=== PATIENT | female | born 1945 | race Caucasian/White ===

== ENCOUNTER 2016-11-01 14:00 | Inpatient (IN) | payer OTHER ==
--- NOTE | 2016-11-01 14:50 | PDOC ---
History of Present Illness - History of Present Illness Initial Comments: 11/01/16 14:54 The patient is a 71 year old female, with a significant past medical history of pulmonary hypertension, Breast CA (Left), large abdominal hernia (RLQ), and chronic low back pain, who presents to the emergency department via ems with increased pain to her lower back s/p mechanical fall about an hour ago. The patient states she stood up with her walker and the walker slipped from under her, causing her to land on her hands and knees. She denies hitting her head or any loss of consciousness. She states she was walking out of her house on her way to the hospital for a CT scan, as referred by Dr. Kay, when she fell. She states her low back pain has increased since her fall today. She reports receiving physical therapy, epidurals, and acupuncture for a pinched nerve in her right lower back over the past few months with little relief of pain. She reports using a wheelchair most days, but states she can use the walker with assistance to get into her wheelchair.The patient states she can not undergo surgery for her hernia because she can not have anesthesia. She denies chest pain, shortness of breath, headache and dizziness. She denies fever, chills, nausea, vomit, diarrhea and constipation. She denies dysuria, frequency, urgency and hematuria. PCP: Dr. Kay <Ofelia Truong - Last Filed: 11/01/16 14:54> - History of Present Illness Initial Comments: 11/01/16 15:13 Physical exam: Alert, moderate distress due to back pain, no head or neck pain or injury. Head atraumatic. PERRLA, fundi benign, ENT clear Neck without tenderness or deformity, full range of motion without pain Chest clear to P&A. No chest wall or rib cage deformity or tenderness There is a large right breast mass that has been diagnosed as breast cancer 2 years ago. There is been no surgery, due to her surgical risk. She is on oral chemotherapy. CV regular without murmur or gallop Abdomen large right sided ventral and/or inguinal hernia is palpable. Bowel sounds are present within the hernia. There is no inflammation and minimal tenderness. The mass is unchanged, according to the patient. LS-spine without visible or palpable evidence of inflammation. Limited cooperation with neurological exam. Refuses to move the legs or resist movement. Examination of the knees shows no deformities, swelling, effusion, point tenderness, or ligament laxity. Upper extremities no sign of trauma as well. 11/01/16 17:18 <Rakesh Plascencia - Last Filed: 11/01/16 17:21> - General Chief Complaint: Back Pain Stated Complaint: FELL, BACK PAIN Time Seen by Provider: 11/01/16 14:32 Past History <Ofelia Truong - Last Filed: 11/01/16 14:54> - Past Medical History Cancer: Yes (LEFT BREAST) COPD: Yes (PULMONARY HYPERTENSION) Diabetes: Yes Other medical history: VENTRAL HERNIA - Psycho/Social/Smoking Cessation Hx Suicidal Ideation: No Smoking History: Former smoker Have you smoked in the past 12 months: No If you are a former smoker, when did you quit?: 43 YRS AGO Information on smoking cessation initiated: No Hx Alcohol Use: No Drug/Substance Use Hx: No Substance Use Type: None <Rakesh Plascencia - Last Filed: 11/01/16 17:21> - Past Medical History Allergies/Adverse Reactions: Allergies Allergy/AdvReac Type Severity Reaction Status Date / Time Iodinated Contrast Media - Allergy Unknown Verified 11/01/16 14:41 Oral and Opioids - Morphine Analogues Allergy Unknown Verified 11/01/16 14:41 Opioids-Meperidine and Allergy Unknown Verified 11/01/16 14:41 Related Home Medications: Ambulatory Orders Amitriptyline HCl [Elavil -] 10 mg PO HS 11/01/16 Arformoterol Tartrate [Brovana (Restricted To Pulmonology/Resp) -] 1 neb NEB BID 11/01/16 Ascorbic Acid [Vitamin C -] 500 mg PO DAILY 11/01/16 Calcium Carbonate/Vitamin D3 [Calcium 600 + Vitamin D Sftgl] 1,200 mg PO HS Cholecalciferol (Vitamin D3) [Vitamin D3] 2,000 unit PO HS 11/01/16 Exemestane [Aromasin] 25 mg PO HS 11/01/16 Exenatide [Byetta [Non-Formulary]] 5 mcg SQ DAILY 11/01/16 Fluticasone Prop 0.05% Nasal [Flonase -] 1 spray NS DAILY 11/01/16 Furosemide [Lasix] 20 mg PO DAILY 11/01/16 Loperamide HCl [Imodium -] 2 mg PO DAILY 11/01/16 Metformin HCl [Glucophage] 500 mg PO BID 11/01/16 Montelukast Na [Singulair -] 10 mg PO HS 11/01/16 Ramipril [Altace] 5 mg PO HS 11/01/16 Tadalafil [Adcirca] 20 mg PO DAILY 11/01/16 Treprostinil Sodium [Remodulin] 2.6 ml IJ ASDIR 11/01/16 Ubidecarenone/Vit E Acetate [Co Q-10 100 mg Softgel] 1 each PO DAILY 11/01/16 Review of Systems - Review of Systems Able to Perform ROS?: Yes Comments:: 11/01/16 14:54 CONSTITUTIONAL: Absent: fever, chills, diaphoresis, generalized weakness, malaise, loss of appetite HEENT: Absent: rhinorrhea, nasal congestion, throat pain, throat swelling, difficulty swallowing, mouth swelling, ear pain, eye pain, visual Changes CARDIOVASCULAR: Absent: chest pain, syncope, palpitations, irregular heart rate, lightheadedness , peripheral edema RESPIRATORY: Absent: cough, shortness of breath, dyspnea with exertion, orthopnea, wheezing, stridor, hemoptysis GASTROINTESTINAL: Absent: abdominal pain, abdominal distension, nausea, vomiting, diarrhea, constipation, melena, hematochezia GENITOURINARY: Absent: dysuria, frequency, urgency, hesitancy, hematuria, flank pain, genital pain MUSCULOSKELETAL: (+) Low back pain. Absent: myalgia, arthralgia, joint swelling SKIN: Absent: rash, itching, pallor HEMATOLOGIC/IMMUNOLOGIC: Absent: easy bleeding, easy bruising, lymphadenopathy, frequent infections ENDOCRINE: Absent: unexplained weight gain, unexplained weight loss, heat intolerance, cold intolerance NEUROLOGIC: Absent: headache, focal weakness or paresthesia, dizziness, unsteady gait, seizure, mental status changes, bladder or bowel incontinence PSYCHIATRIC: Absent: anxiety, depression, suicidal or homicidal ideation, hallucinations <Ofelia Truong - Last Filed: 11/01/16 14:54> *Physical Exam - Vital Signs Last Vital Signs Temp Pulse Resp BP Pulse Ox 98.3 F 65 28 H 106/77 100 11/01/16 14:16 11/01/16 14:16 11/01/16 14:16 11/01/16 14:16 11/01/16 14:16 - Physical Exam Comments: 11/01/16 14:55 GENERAL: Well developed, well nourished. Awake and alert. No acute distress. HEENT: Normocephalic, atraumatic. PERRLA, EOMI. No conjunctival pallor. Sclera are non- icteric. Moist mucous membranes. Oropharynx is clear. NECK: Supple. Full ROM. No JVD. Carotid pulses 2+ and symmetric, without bruits. No thyromegaly. No lymphadenopathy. CARDIOVASCULAR: Regular rate and rhythm. No murmurs, rubs, or gallops. Distal pulses are 2+ and symmetric. PULMONARY: No evidence of respiratory distress. Lungs clear to auscultation bilaterally. No wheezing, rales or rhonchi. ABDOMINAL: Soft. Non-tender. Non-distended. No rebound or guarding. No organomegaly. Normoactive bowel sounds. MUSCULOSKELETAL No bony deformities or tenderness. No CVA tenderness. EXTREMITIES: No cyanosis. No clubbing. No edema. No calf tenderness. SKIN: Warm and dry. Normal capillary refill. No rashes. No jaundice. NEUROLOGICAL: Alert, awake, appropriate. Cranial nerves 2-12 intact. Normal speech. PSYCHIATRIC: Cooperative. Good eye contact. Appropriate mood and affect. <Ofelia Truong - Last Filed: 11/01/16 14:54> - Vital Signs Last Vital Signs Temp Pulse Resp BP Pulse Ox 98.3 F 65 28 H 106/77 100 11/01/16 14:16 11/01/16 14:16 11/01/16 14:16 11/01/16 14:16 11/01/16 14:16 <Rakesh Plascencia - Last Filed: 11/01/16 17:21> ED Treatment Course - LABORATORY CBC & Chemistry Diagram: 11/01/16 17:00 11/01/16 17:00 <Rakesh Plascencia - Last Filed: 11/01/16 17:21> Medical Decision Making - Medical Decision Making 11/01/16 15:11 The patient was on her way to the hospital today for scheduled CAT scan of her abdomen/pelvis and LS-spine. She has been having more severe lower back pain since her last CT. This has been unresponsive to analgesics, and injections. She has no radicular symptoms, the pain being confined to the low back, especially on the left. She is primarily wheelchair bound. There have been no bowel or bladder symptoms. She also has a large right ventral hernia, with no increased pain, nausea, vomiting, diarrhea, or constipation, but its size has been increasing. 11/01/16 17:19 CT scan of the spine reveals multiple compression fractures of the spine from T12-L5. These changes are new since the last scan of July,. An infiltrative process is likely, probably metastatic breast cancer. Dr. Kay, her primary physician, was consulted by phone. In addition, his hospitalist, Dr. Hall, was informed. He will admit the patient for further evaluation and treatment. She is hesitant to take any narcotic analgesics because of bad reactions in the past, though no definite ALLERGY was present. She appears fairly comfortable, as long as she avoids movement. <Rakesh Plascencia - Last Filed: 11/01/16 17:21> *DC/Admit/Observation/Transfer - Attestations Scribe Attestion: 11/01/16 14:56 Documentation prepared by Ofelia Truong, acting as center medical and lab director for Rakesh Trevino MD <Ofelia Truong - Last Filed: 11/01/16 14:54> - Discharge Dispostion Admit: Yes <Rakesh Plascencia - Last Filed: 11/01/16 17:21> Diagnosis at time of Disposition: Pathologic compression fracture of lumbar vertebra - Discharge Dispostion Condition at time of disposition: Fair
[2016-11-01 17:32] LABS: BASOPHIL 0.2 % (0-2.0); MCH 26.1 pg (25.7-33.7); MCHC 32.4 g/dl (32.0-36.0); MEAN CELL VOLUME 80.5 fl (80-96); MEAN PLT VOLUME 6.4 fl (7.5-11.1); NEUTROPHILS 84.4 % (42.8-82.8); PLATELET COUNT 217 K/MM3 (134-434); RDW 15.5 % (11.6-15.6); WHITE BLOOD COUNT 12.2 K/mm3 (4.0-10.0)
[2016-11-01 17:39] LABS: ALBUMIN 3.4 g/dl (3.5-5.0); ALK PHOS 61 U/L (32-92); ANION GAP 10 (8-16); BILIRUBIN,TOTAL 0.5 mg/dl (0.2-1.0); CALCIUM 8.9 mg/dl (8.4-10.2); CO2 25 mmol/L (22-28); CREATININE 0.6 mg/dl (0.6-1.3); GLUCOSE,RANDOM 115 mg/dl (74-106); SGOT/AST 11 U/L (10-42); TOT PROT 6.2 g/dl (6.4-8.3)
[2016-11-01 17:50] LABS: SGPT/ALT < 9 U/L (10-40)
[2016-11-01 21:03] LABS: URINE APPEARANCE Clear; URINE BILIRUBIN Negative (NEGATIVE); URINE BLOOD Negative (NEGATIVE); URINE GLUCOSE (UA) Negative (NEGATIVE); URINE KETONE Negative (NEGATIVE); URINE LEUK ESTERASE Trace (NEGATIVE); URINE NITRITE Negative (NEGATIVE); URINE PROTEIN Negative (NEGATIVE); URINE UROBILINOGEN 0.2 E.U/dl (0.2-1.0)
[2016-11-01 21:04] LABS: URINE COLOR YELLOW
[2016-11-01] MEDS ORDERED: FUROSEMIDE 20 MG TABLET (FP) PO PRN (21:55)
[2016-11-01] MEDS ORDERED: ONDANSETRON 4 MG/2 ML VIAL IVPB PRN (21:56)
[2016-11-01] MEDS ORDERED: ACETAMINOPHEN 325 MG TABLET (FP) PO PRN (21:56)
[2016-11-01] MEDS ORDERED: PT OWN MED DRAWER 7, Y5N ONE (22:52)
[2016-11-01] MEDS ORDERED: REFRIGERATED ANITBIOTICS ONE (22:53)
[2016-11-01] MEDS: MONTELUKAST NA 10 MG TABLET PO SCH (22:56)
[2016-11-01] MEDS: CHOLECALCIFEROL (VITAMIN D3) 1,000 UNIT TABLET (FP) PO SCH (22:56)
[2016-11-01] MEDS: ARFORMOTEROL TARTRATE 15 MCG/2 ML VIAL NEB SCH (22:57)
[2016-11-01] MEDS: RAMIPRIL 5 MG CAPSULE (FP) PO SCH (22:57)
[2016-11-01] MEDS: DOCUSATE SODIUM 100 MG CAPSULE (FP) PO SCH (22:57)
[2016-11-01] MEDS: EXEMESTANE 25 MG TABLET PO SCH (22:57)
[2016-11-01] MEDS: TREPROSTINIL SODIUM IJ SCH (22:59)
[2016-11-02 00:14] VITALS: BMI 37.0
[2016-11-02] MEDS ORDERED: PT OWN MED DRAWER 7, Y5N ONE ×4 (08:01→21:26)
[2016-11-02 08:53] LABS: BASOPHIL 1.1 % (0-2.0); MCH 26.8 pg (25.7-33.7); MCHC 33.3 g/dl (32.0-36.0); MEAN CELL VOLUME 80.4 fl (80-96); MEAN PLT VOLUME 6.6 fl (7.5-11.1); NEUTROPHILS 78.3 % (42.8-82.8); PLATELET COUNT 220 K/MM3 (134-434); RDW 15.5 % (11.6-15.6); WHITE BLOOD COUNT 10.1 K/mm3 (4.0-10.0)
[2016-11-02 09:16] LABS: CALCIUM 8.6 mg/dl (8.4-10.2); CREATININE 0.6 mg/dl (0.6-1.3); MAGNESIUM 1.8 mg/dL (1.8-2.4); PHOSPHOROUS 3.6 mg/dl (2.5-4.6)
[2016-11-02] MEDS: ARFORMOTEROL TARTRATE 15 MCG/2 ML VIAL NEB SCH ×2 (09:33→21:34)
[2016-11-02] MEDS ORDERED: EXENATIDE 5 MCG SQ SCH (10:00)
[2016-11-02] MEDS ORDERED: PATIENT'S OWN MEDICATION (NON-FORMULARY) (Ubidecarenone/Vit E Acetate [Co Q-10 100 Mg Soft PO SCH (10:00)
[2016-11-02] MEDS ORDERED: TADALAFIL 20 MG PO SCH (10:00)
[2016-11-02] MEDS ORDERED: LOPERAMIDE HCL 2 MG CAPSULE PO SCH (10:00)
--- NOTE | 2016-11-02 10:14 | HP ---
Admitting History and Physical - Primary Care Physician PCP: Angel Kay - Admission Chief Complaint: I have a lot of pain History of Present Illness: Mrs Blandon is a very pleasant 71 year old female who comes in with intractable back pain. She has a history of back pain, but in the past 3 weeks it has become so severe she has been unable to walk. She is followed by pain management and has undergone injections, physical therapy, and accupuncture without relief. She is followed by Dr Kay and recommended a repeat CT scan secondary to worsening pain. While she was getting ready for the CT scan, she was using her wheelchair as a walker and it slipped. She fell and hit her knees. She did not have head trauma. She did not pass out. However she had acute worsening of her back pain and inability to get up and ambulate. She denies fevers, chills, lightheadedness, dizziness, chest pain, worsening shortness of breath, nausea, vomiting, abdominal pain, diarrhea, constipation, pain or difficulty urinating, or swelling. She has a ventral hernia that has been increasing in size but it is not painful. She is currently having pain with movement but is not having pain when still. History Source: Patient Limitations to Obtaining History: No Limitations - Past Medical History Cardiovascular: Yes: CHF (right sided) Pulmonary: Yes: Other (pulmonary hypertension) Heme/Onc: Yes: Cancer (breast, uterine) Endocrine: Yes: Diabetes Mellitus - Past Surgical History Past Surgical History: Yes: Appendectomy, Hysterectomy - Advance Directives Advance Directives: Yes: Health Care Proxy - Smoking History Smoking history: Former smoker Have you smoked in the past 12 months: No If you are a former smoker, when did you quit?: 43 YRS AGO - Alcohol/Substance Use Hx Alcohol Use: No History of Substance Use: reports: None - Social History Usual Living Arrangement: Yes: With Child ADL: Family Assistance History of Recent Travel: No Home Medications - Allergies Allergies/Adverse Reactions: Allergies Allergy/AdvReac Type Severity Reaction Status Date / Time Iodinated Contrast Media - Allergy Unknown Verified 11/01/16 14:41 Oral and Opioids - Morphine Analogues Allergy Unknown Verified 11/01/16 14:41 Opioids-Meperidine and Allergy Unknown Verified 11/01/16 14:41 Related - Home Medications Home Medications: Ambulatory Orders Arformoterol Tartrate [Brovana (Restricted To Pulmonology/Resp) -] 1 neb NEB BID 11/01/16 Ascorbic Acid [Vitamin C -] 500 mg PO DAILY 11/01/16 Cholecalciferol (Vitamin D3) [Vitamin D3] 2,000 unit PO HS 11/01/16 Exemestane [Aromasin] 25 mg PO HS 11/01/16 Exenatide [Byetta [Non-Formulary]] 5 mcg SQ DAILY 11/01/16 Fluticasone Prop 0.05% Nasal [Flonase -] 1 spray NS DAILY 11/01/16 Furosemide [Lasix] 20 mg PO DAILY PRN 11/01/16 Loperamide HCl [Imodium -] 2 mg PO DAILY 11/01/16 Metformin HCl [Glucophage] 500 mg PO BID 11/01/16 Montelukast Na [Singulair -] 10 mg PO HS 11/01/16 Non-Formulary 0 mg PO ASDIR PRN 11/01/16 Ramipril [Altace] 5 mg PO HS 11/01/16 Tadalafil [Adcirca] 20 mg PO DAILY 11/01/16 Treprostinil Sodium [Remodulin] 2.6 ml IJ ASDIR 11/01/16 Ubidecarenone/Vit E Acetate [Co Q-10 100 mg Softgel] 1 each PO DAILY 11/01/16 Family Disease History - Family Disease History Family Disease History: CA: Father, Mother Review of Systems Findings/Remarks: Full review of systems obtained, as per HPI and otherwise negative Physical Examination Vital Signs: Vital Signs Temperature 98.7 F 11/02/16 06:29 Pulse Rate 96 H 11/02/16 06:29 Respiratory Rate 18 11/02/16 06:29 Blood Pressure 106/55 11/02/16 06:29 O2 Sat by Pulse Oximetry (%) 94 L 11/02/16 08:52 Constitutional: Yes: No Distress, Calm, Obese Eyes: Yes: Conjunctiva Clear, EOM Intact HENT: Yes: Atraumatic, Normocephalic Cardiovascular: Yes: Regular Rate and Rhythm. No: Gallop, Murmur, Rub Respiratory: Yes: Regular, CTA Bilaterally. No: Rales, Rhonchi, Wheezes Gastrointestinal: Yes: Normal Bowel Sounds, Soft, Distention, Hernia. No: Tenderness Extremities: Yes: WNL Edema: No Labs: CBC, BMP 11/02/16 07:59 11/02/16 07:59 Imaging - Results Chest X-ray: Report Reviewed, Image Reviewed Cat Scan: Report Reviewed Problem List - Problems (1) Pathologic compression fracture of lumbar vertebra Assessment/Plan: -concerning for metastatic breast cancer -however also could be secondary to osteoporosis -will consult Dr Montelongo as pain is poorly controlled -continue medical marijuana and tramadol, however may benefit from opioids. will defer to pain management Code(s): M48.56XA - COLLAPSED VERTEBRA, NEC, LUMBAR REGION, INIT (2) Intractable back pain Assessment/Plan: -secondary to fall and compression fractures -PT consult -continue tramadol and medical marijuana -pain management consult -? need for opioids Code(s): M54.9 - DORSALGIA, UNSPECIFIED (3) Pulmonary hypertension Assessment/Plan: -continue home regimen -monitor, not a surgical candidate secondary to severity (has pump with remodulin) Code(s): I27.2 - OTHER SECONDARY PULMONARY HYPERTENSION (4) Breast cancer Assessment/Plan: -concerning for metastasis -consult oncology for evaluation -continue aromasin Code(s): C50.919 - MALIGNANT NEOPLASM OF UNSP SITE OF UNSPECIFIED FEMALE BREAST (5) Diabetes Assessment/Plan: -diabetic diet -continue metformin -continue byetta -monitor glucose on bmp Code(s): E11.9 - TYPE 2 DIABETES MELLITUS WITHOUT COMPLICATIONS
[2016-11-02] MEDS: DOCUSATE SODIUM 100 MG CAPSULE (FP) PO SCH ×2 (10:54→21:34)
[2016-11-02] MEDS: metFORMIN HCL 500 MG TABLET (FP) PO SCH ×2 (10:54→16:50)
[2016-11-02] MEDS: FLUTICASONE PROP 0.05% 16 GM NASAL SPRAY NS SCH (10:55)
[2016-11-02] MEDS: ENOXAPARIN NA (PORCINE) 40 MG/0.4 ML DISP.SYRIN SQ SCH (10:55)
[2016-11-02] MEDS: ASCORBIC ACID 500 MG TABLET (FP) PO SCH (10:56)
[2016-11-02] MEDS: POLYETHYLENE GLYCOL 3350 119 GM BTL PO SCH (11:02)
[2016-11-02] MEDS: LOPERAMIDE HCL 2 MG CAPSULE PO SCH (11:30)
--- NOTE | 2016-11-02 20:51 | CONSULT ---
Consult Consult Specialty:: pain medicine Referred by:: dr hernandez Reason for Consultation:: back pain - History of Present Illness Chief Complaint: back pain History of Present Illness: 71 year old female, with a significant past medical history of pulmonary hypertension, Breast CA (Left), large abdominal hernia (RLQ), and chronic low back pain, who presents to the emergency department via ems with increased pain to her lower back s/p mechanical fall about an hour ago. The patient states she stood up with her walker and the walker slipped from under her, causing her to land on her hands and knees. Currently she is in her wheel chair and is hesitant to climb into her bed due to pain. Pain score 10/10 - Past Medical History Cardio/Vascular: Yes: CHF (right sided) Pulmonary: Yes: Other (pulmonary hypertension) Endocrine: Yes: Diabetes Mellitus - Past Surgical History Past Surgical History: Yes: Appendectomy, Hysterectomy - Alcohol/Substance Use Hx Alcohol Use: No History of Substance Use: reports: None - Smoking History Smoking history: Former smoker Have you smoked in the past 12 months: No If you are a former smoker, when did you quit?: 43 YRS AGO - Social History ADL: Family Assistance History of Recent Travel: No Home Medications - Allergies Allergies/Adverse Reactions: Allergies Allergy/AdvReac Type Severity Reaction Status Date / Time Iodinated Contrast Media - Allergy Unknown Verified 11/01/16 14:41 Oral and Opioids - Morphine Analogues Allergy Unknown Verified 11/01/16 14:41 Opioids-Meperidine and Allergy Unknown Verified 11/01/16 14:41 Related - Home Medications Home Medications: Ambulatory Orders Arformoterol Tartrate [Brovana (Restricted To Pulmonology/Resp) -] 1 neb NEB BID 11/01/16 Ascorbic Acid [Vitamin C -] 500 mg PO DAILY 11/01/16 Cholecalciferol (Vitamin D3) [Vitamin D3] 2,000 unit PO HS 11/01/16 Exemestane [Aromasin] 25 mg PO HS 11/01/16 Exenatide [Byetta [Non-Formulary]] 5 mcg SQ DAILY 11/01/16 Fluticasone Prop 0.05% Nasal [Flonase -] 1 spray NS DAILY 11/01/16 Furosemide [Lasix] 20 mg PO DAILY PRN 11/01/16 Loperamide HCl [Imodium -] 2 mg PO DAILY 11/01/16 Metformin HCl [Glucophage] 500 mg PO BID 11/01/16 Montelukast Na [Singulair -] 10 mg PO HS 11/01/16 Non-Formulary 0 mg PO ASDIR PRN 11/01/16 Ramipril [Altace] 5 mg PO HS 11/01/16 Tadalafil [Adcirca] 20 mg PO DAILY 11/01/16 Treprostinil Sodium [Remodulin] 2.6 ml IJ ASDIR 11/01/16 Ubidecarenone/Vit E Acetate [Co Q-10 100 mg Softgel] 1 each PO DAILY 11/01/16 Family Disease History - Family Disease History Family Disease History: CA: Father, Mother Physical Exam Vital Signs: Vital Signs Temperature 98 F 11/02/16 14:23 Pulse Rate 111 H 11/02/16 14:23 Respiratory Rate 20 11/02/16 14:23 Blood Pressure 115/57 11/02/16 14:23 O2 Sat by Pulse Oximetry (%) 92 L 11/02/16 14:23 Musculoskeletal: Yes: Back Pain Labs: CBC, BMP 11/02/16 07:59 11/02/16 07:59 Assessment/Plan Lower back pain secondary to acute compression fractures ( several) 1. Further diagnostic tests- Ideally the patient should obtain a lumbar spine MRI to assist with diagnosis of her fractures. She would need to lay on her back for at least 30 min for the MRI, but I am unsure if she can handle this. If this is not possible, a nuclear bone scan should then be considered. 2. Pharmacological approaches- The patient has a history of "BAD" reaction to percocet in the past and is hesitant to start any opioids tonight. The patient would consider starting low dose dilaudid 2mg PO q4h prn in the morning. Since the patient has significant lung disease, we need to be cautious with dose titration. She can also continue her medicinal marijuana which she states is helping.
[2016-11-02] MEDS ORDERED: REFRIGERATED ANITBIOTICS ONE ×3 (21:22→21:41)
[2016-11-02] MEDS: TREPROSTINIL SODIUM IJ SCH (21:34)
[2016-11-02] MEDS: MONTELUKAST NA 10 MG TABLET PO SCH (21:34)
[2016-11-02] MEDS: CHOLECALCIFEROL (VITAMIN D3) 1,000 UNIT TABLET (FP) PO SCH (21:34)
[2016-11-02] MEDS: EXEMESTANE 25 MG TABLET PO SCH (21:34)
[2016-11-02] MEDS: RAMIPRIL 5 MG CAPSULE (FP) PO SCH (21:34)
--- NOTE | 2016-11-02 23:33 | EKG ---
Test Reason : Blood Pressure : / mmHG Vent. Rate : 109 BPM Atrial Rate : 109 BPM P-R Int : 202 ms QRS Dur : 074 ms QT Int : 324 ms P-R-T Axes : 031 065 031 degrees QTc Int : 436 ms SINUS TACHYCARDIA POSSIBLE LEFT ATRIAL ENLARGEMENT LOW VOLTAGE QRS CANNOT RULE OUT SEPTAL INFARCT (CITED ON OR BEFORE 25-FEB-2011) ABNORMAL ECG WHEN COMPARED WITH ECG OF 26-APR-2011 13:58, VENT. RATE HAS INCREASED Confirmed by ANNA DE LA ROSA MD ([id number]) on 11/02/2016 11:32:52 PM Referred By: SARAH Confirmed By:ANNA DE LA ROSA MD
[2016-11-03 08:52] LABS: BASOPHIL 1.4 % (0-2.0); EOSINOPHIL 2.7 % (0-4.5); MCH 26.5 pg (25.7-33.7); MCHC 32.8 g/dl (32.0-36.0); MEAN CELL VOLUME 80.9 fl (80-96); MEAN PLT VOLUME 6.3 fl (7.5-11.1); NEUTROPHILS 74.2 % (42.8-82.8); PLATELET COUNT 226 K/MM3 (134-434); RDW 15.6 % (11.6-15.6); WHITE BLOOD COUNT 8.8 K/mm3 (4.0-10.0)
[2016-11-03 09:16] LABS: CALCIUM 8.8 mg/dl (8.4-10.2); CREATININE 0.6 mg/dl (0.6-1.3); MAGNESIUM 1.9 mg/dL (1.8-2.4); PHOSPHOROUS 3.7 mg/dl (2.5-4.6)
[2016-11-03] MEDS: ARFORMOTEROL TARTRATE 15 MCG/2 ML VIAL NEB SCH ×2 (09:34→21:16)
--- NOTE | 2016-11-03 09:39 | PN ---
Progress Note, Physician Chief Complaint: Ms Blandon says she had a good night, she was able to sleep. However is feeling drunk right now secondary to her marijuana dose. Currently not having pain. No cp, sob, n/v. - Current Medication List Current Medications: Active Medications Acetaminophen (Tylenol -) 650 mg PO Q4H PRN PRN Reason: FEVER OR PAIN Arformoterol Tartrate (Brovana (Restricted To Pulmonology/Resp) -) 1 amp NEB BID [facility] Last Admin: 11/03/16 09:34 Dose: 1 amp Ascorbic Acid (Vitamin C -) 500 mg PO DAILY [facility] Last Admin: 11/02/16 10:56 Dose: 500 mg Cholecalciferol (Vitamin D3 -) 2,000 unit PO [facility] Last Admin: 11/02/16 21:34 Dose: 2,000 unit Docusate Sodium (Colace -) 100 mg PO BID [facility] Last Admin: 11/02/16 21:34 Dose: 100 mg Enoxaparin Sodium (Lovenox -) 40 mg SQ DAILY [facility] Last Admin: 11/02/16 10:55 Dose: Not Given Exemestane (Aromasin -) 25 mg PO HS [facility] Last Admin: 11/02/16 21:34 Dose: 25 mg Fluticasone Propionate (Flonase -) 1 spray NS DAILY [facility] Last Admin: 11/02/16 10:55 Dose: Not Given Furosemide (Lasix -) 20 mg PO DAILY PRN PRN Reason: LEG EDEMA Loperamide HCl (Imodium -) 2 mg PO DAILY [facility] Last Admin: 11/02/16 11:30 Dose: 2 mg Metformin HCl (Glucophage -) 500 mg PO BIDAC [facility] Last Admin: 11/02/16 16:50 Dose: 500 mg Montelukast Sodium (Singulair -) 10 mg PO HS [facility] Last Admin: 11/02/16 21:34 Dose: 10 mg Non-Formulary Medication (Exenatide) 5 mcg SQ DAILY [facility] Non-Formulary Medication (Treprostinil Sodium [Remodulin]) 2.6 ml IJ ASDIR [facility] Last Admin: 11/02/16 21:34 Dose: 2.6 ml Non-Formulary Medication (Ubidecarenone/Vit E Acetate [Co Q-10 100 Mg Softgel]) 1 each PO DAILY [facility] Non-Formulary Medication (Tadalafil [Adcirca]) 20 mg PO DAILY [facility] Ondansetron HCl (Zofran Injection) 4 mg IVPB Q6H PRN PRN Reason: NAUSEA Polyethylene Glycol (Miralax (For Daily Use) -) 17 gm PO DAILY [facility] Last Admin: 11/02/16 11:02 Dose: Not Given Ramipril (Altace -) 5 mg PO HS [facility] Last Admin: 11/02/16 21:34 Dose: 5 mg Tramadol HCl (Ultram -) 100 mg PO Q6H PRN PRN Reason: PAIN - Objective Vital Signs: Vital Signs Temperature 98.4 F 11/02/16 23:36 Pulse Rate 102 H 11/02/16 23:36 Respiratory Rate 17 11/02/16 23:36 Blood Pressure 125/55 11/02/16 23:36 O2 Sat by Pulse Oximetry (%) 92 L 11/02/16 23:36 Constitutional: Yes: No Distress, Calm, Obese Cardiovascular: Yes: Regular Rate and Rhythm. No: Gallop, Murmur, Rub Respiratory: Yes: Regular, Rales, Rhonchi. No: Tachypnea, Wheezes Gastrointestinal: Yes: Normal Bowel Sounds, Soft. No: Distention, Tenderness Extremities: Yes: WNL Edema: No Labs: CBC, BMP 11/03/16 07:34 11/03/16 07:34 Problem List - Problems (1) Pathologic compression fracture of lumbar vertebra Code(s): M48.56XA - COLLAPSED VERTEBRA, NEC, LUMBAR REGION, INIT (2) Intractable back pain Code(s): M54.9 - DORSALGIA, UNSPECIFIED (3) Pulmonary hypertension Code(s): I27.2 - OTHER SECONDARY PULMONARY HYPERTENSION (4) Breast cancer Code(s): C50.919 - MALIGNANT NEOPLASM OF UNSP SITE OF UNSPECIFIED FEMALE BREAST (5) Diabetes Code(s): E11.9 - TYPE 2 DIABETES MELLITUS WITHOUT COMPLICATIONS Assessment/Plan (1) Pathologic compression fracture of lumbar vertebra Assessment/Plan: -appreciate Dr Montelongo assistance -agree with MRI, however concerned patient will not tolerate -if cannot, consider bone scan Code(s): M48.56XA - COLLAPSED VERTEBRA, NEC, LUMBAR REGION, INIT (2) Intractable back pain Assessment/Plan: -secondary to fall and compression fractures -PT consulted -continue tramadol and medical marijuana -pain management seeing and to decide if opioids is appropriate Code(s): M54.9 - DORSALGIA, UNSPECIFIED (3) Pulmonary hypertension Assessment/Plan: -continue home regimen -monitor, not a surgical candidate secondary to severity (has pump with remodulin) Code(s): I27.2 - OTHER SECONDARY PULMONARY HYPERTENSION (4) Breast cancer Assessment/Plan: -concerning for metastasis -consulted oncology for evaluation, awaiting recommendations -continue aromasin Code(s): C50.919 - MALIGNANT NEOPLASM OF UNSP SITE OF UNSPECIFIED FEMALE BREAST (5) Diabetes Assessment/Plan: -diabetic diet -continue metformin -continue byetta -monitor glucose on bmp Code(s): E11.9 - TYPE 2 DIABETES MELLITUS WITHOUT COMPLICATIONS
[2016-11-03] MEDS ORDERED: [UNRECOGNIZED DRUG - OTHER] PO PRN ×2 (10:25→10:26)
[2016-11-03] MEDS: FLUTICASONE PROP 0.05% 16 GM NASAL SPRAY NS SCH ×2 (10:30→11:33)
[2016-11-03] MEDS: ENOXAPARIN NA (PORCINE) 40 MG/0.4 ML DISP.SYRIN SQ SCH ×2 (11:15→11:34)
[2016-11-03] MEDS ORDERED: PT OWN MED DRAWER 7, Y5N ONE ×2 (11:20→21:15)
[2016-11-03] MEDS: metFORMIN HCL 500 MG TABLET (FP) PO SCH ×2 (11:25→17:18)
[2016-11-03] MEDS: DOCUSATE SODIUM 100 MG CAPSULE (FP) PO SCH ×2 (11:26→21:16)
[2016-11-03] MEDS: LOPERAMIDE HCL 2 MG CAPSULE PO SCH (11:26)
[2016-11-03] MEDS: ASCORBIC ACID 500 MG TABLET (FP) PO SCH (11:27)
[2016-11-03] MEDS: TADALAFIL 40 MG PO SCH (11:33)
[2016-11-03] MEDS: POLYETHYLENE GLYCOL 3350 119 GM BTL PO SCH (11:33)
[2016-11-03] MEDS: [UNRECOGNIZED DRUG - OTHER] PO SCH ×2 (14:00→21:30)
--- NOTE | 2016-11-03 17:33 | CONSULT ---
Consult Consult Specialty:: onc Reason for Consultation:: back pain - History of Present Illness Chief Complaint: pt adm w worsened back pain s/p fall History of Present Illness: 71 yof w hx signif for early stage breast cancer and treated w hormonotx for past 1 yr. She was non-candidate for surgery due to severe pulm HTN. After starting arimidex? an MRI disclosed enlarging mass and she was subseq switched to aromasin. Marbin'd at [facility], Dr.Amy Wray. She has been foll'd by [facility] for back pain. Imaging here discloses new comp fxs and osteopenia, marrow infiltration. Pain is severe and analgesia options limited in view of her comorbidities - History Source History Provided By: Patient, Medical Record - Past Medical History Cardio/Vascular: Yes: CHF (right sided) Pulmonary: Yes: Other (pulmonary hypertension) Endocrine: Yes: Diabetes Mellitus - Past Surgical History Past Surgical History: Yes: Appendectomy, Hysterectomy - Alcohol/Substance Use Hx Alcohol Use: No History of Substance Use: reports: None - Smoking History Smoking history: Former smoker Have you smoked in the past 12 months: No If you are a former smoker, when did you quit?: 43 YRS AGO - Social History ADL: Family Assistance History of Recent Travel: No Home Medications - Allergies Allergies/Adverse Reactions: Allergies Allergy/AdvReac Type Severity Reaction Status Date / Time Iodinated Contrast Media - Allergy Unknown Verified 11/01/16 14:41 Oral and Opioids - Morphine Analogues Allergy Unknown Verified 11/01/16 14:41 Opioids-Meperidine and Allergy Unknown Verified 11/01/16 14:41 Related - Home Medications Home Medications: Ambulatory Orders Arformoterol Tartrate [Brovana (Restricted To Pulmonology/Resp) -] 1 neb NEB BID 11/01/16 Ascorbic Acid [Vitamin C -] 500 mg PO DAILY 11/01/16 Cholecalciferol (Vitamin D3) [Vitamin D3] 2,000 unit PO HS 11/01/16 Exemestane [Aromasin] 25 mg PO HS 11/01/16 Exenatide [Byetta [Non-Formulary]] 5 mcg SQ DAILY 11/01/16 Fluticasone Prop 0.05% Nasal [Flonase -] 1 spray NS DAILY 11/01/16 Furosemide [Lasix] 20 mg PO DAILY PRN 11/01/16 Loperamide HCl [Imodium -] 2 mg PO DAILY 11/01/16 Metformin HCl [Glucophage] 500 mg PO BID 11/01/16 Montelukast Na [Singulair -] 10 mg PO HS 11/01/16 Non-Formulary 0 mg PO ASDIR PRN 11/01/16 Ramipril [Altace] 5 mg PO HS 11/01/16 Tadalafil [Adcirca] 20 mg PO DAILY 11/01/16 Treprostinil Sodium [Remodulin] 2.6 ml IJ ASDIR 11/01/16 Ubidecarenone/Vit E Acetate [Co Q-10 100 mg Softgel] 1 each PO DAILY 11/01/16 Family Disease History - Family Disease History Family Disease History: CA: Father (prostate ca), Mother Physical Exam Vital Signs: Vital Signs Temperature 97.8 F 11/03/16 14:03 Pulse Rate 116 H 11/03/16 14:03 Respiratory Rate 20 11/03/16 14:03 Blood Pressure 115/53 11/03/16 14:03 O2 Sat by Pulse Oximetry (%) 92 L 11/03/16 14:03 Constitutional: Yes: Well Nourished, No Distress Neck: Yes: Other (Terence) Cardiovascular: Yes: Regular Rate and Rhythm Respiratory: Yes: CTA Bilaterally Gastrointestinal: Yes: Soft, Abdomen, Obese ...Rectal Exam: Yes: Other (hernia) Breast(s): Yes: Other (no palp discrete mass or ax LA bilat) Edema: LLE: Trace, RLE: Trace Neurological: Yes: Other (unable to test 2/2pain) Labs: CBC, BMP 11/03/16 07:34 11/03/16 07:34 Assessment/Plan h/o breast cancer and treated w hormonotx Has increasing back pain,osteopenia No definitive evid for met dz. Since she cannot undergo MRI, would pursue bone scan Obtain Ca 27.29 and can send SPEP; I suspect there is not a marrow infiltrative process. Is she a candidate for vb plasty or nerve root injection? She thinks she cannot undergo conscious sedation. Tx for osteoporosis (prolia) should be considered as outpt foll'ing w you
[2016-11-03] MEDS: CHOLECALCIFEROL (VITAMIN D3) 1,000 UNIT TABLET (FP) PO SCH (21:16)
[2016-11-03] MEDS: RAMIPRIL 5 MG CAPSULE (FP) PO SCH (21:16)
[2016-11-03] MEDS: MONTELUKAST NA 10 MG TABLET PO SCH (21:16)
[2016-11-03] MEDS: EXEMESTANE 25 MG TABLET PO SCH (21:22)
[2016-11-03] MEDS: TREPROSTINIL SODIUM IJ SCH (21:31)
[2016-11-04] MEDS ORDERED: PT OWN MED DRAWER 7, Y5N ONE ×3 (06:46→16:18)
[2016-11-04] MEDS: [UNRECOGNIZED DRUG - OTHER] PO SCH ×2 (06:55→21:34)
[2016-11-04] MEDS: metFORMIN HCL 500 MG TABLET (FP) PO SCH ×2 (06:56→16:18)
[2016-11-04 08:39] LABS: BASOPHIL 1.3 % (0-2.0); EOSINOPHIL 2.5 % (0-4.5); MCH 26.3 pg (25.7-33.7); MCHC 32.7 g/dl (32.0-36.0); MEAN CELL VOLUME 80.6 fl (80-96); MEAN PLT VOLUME 6.4 fl (7.5-11.1); NEUTROPHILS 74.6 % (42.8-82.8); PLATELET COUNT 219 K/MM3 (134-434); RDW 15.4 % (11.6-15.6); WHITE BLOOD COUNT 8.6 K/mm3 (4.0-10.0)
[2016-11-04 09:05] LABS: CALCIUM 8.7 mg/dl (8.4-10.2); CREATININE 0.6 mg/dl (0.6-1.3); MAGNESIUM 1.8 mg/dL (1.8-2.4); PHOSPHOROUS 3.9 mg/dl (2.5-4.6)
--- NOTE | 2016-11-04 09:48 | PN ---
Progress Note, Physician Chief Complaint: Ms Blandon says she is continuing to have pain, is at the point where it is becoming unbearable. However is very afraid of taking narcotics to the point of tears when talking about it. Denies cp, sob, n/v. - Current Medication List Current Medications: Active Medications Acetaminophen (Tylenol -) 650 mg PO Q4H PRN PRN Reason: FEVER OR PAIN Arformoterol Tartrate (Brovana (Restricted To Pulmonology/Resp) -) 1 amp NEB BID [facility] Last Admin: 11/03/16 21:16 Dose: 1 amp Ascorbic Acid (Vitamin C -) 500 mg PO DAILY [facility] Last Admin: 11/03/16 11:27 Dose: 500 mg Cholecalciferol (Vitamin D3 -) 2,000 unit PO HS [facility] Last Admin: 11/03/16 21:16 Dose: 2,000 unit Docusate Sodium (Colace -) 100 mg PO BID [facility] Last Admin: 11/03/16 21:16 Dose: 100 mg Enoxaparin Sodium (Lovenox -) 40 mg SQ DAILY [facility] Last Admin: 11/03/16 11:15 Dose: 40 mg Exemestane (Aromasin -) 25 mg PO HS [facility] Last Admin: 11/03/16 21:22 Dose: 25 mg Fluticasone Propionate (Flonase -) 1 spray NS DAILY [facility] Last Admin: 11/03/16 11:33 Dose: 1 spray Furosemide (Lasix -) 20 mg PO DAILY PRN PRN Reason: LEG EDEMA Loperamide HCl (Imodium -) 2 mg PO DAILY [facility] Last Admin: 11/03/16 11:26 Dose: 2 mg Metformin HCl (Glucophage -) 500 mg PO BIDAC [facility] Last Admin: 11/04/16 06:56 Dose: Not Given Montelukast Sodium (Singulair -) 10 mg PO HS [facility] Last Admin: 11/03/16 21:16 Dose: 10 mg Non-Formulary Medication (Exenatide) 5 mcg SQ DAILY [facility] Non-Formulary Medication (Treprostinil Sodium [Remodulin]) 2.6 ml IJ ASDIR [facility] Last Admin: 11/03/16 21:31 Dose: 2.6 ml Non-Formulary Medication (Tadalafil [Adcirca]) 40 mg PO DAILY [facility] Last Admin: 11/03/16 11:33 Dose: 40 mg Non-Formulary Med ( (Balance Tincture)) 0 each PO TID [facility] Last Admin: 11/04/16 06:55 Dose: Not Given Non-Formulary Med ( (Forte Tincture)) 0 each PO Q4H PRN Non-Formulary Med ( (Forte Tincture)) 0 each PO Q6H PRN Ondansetron HCl (Zofran Injection) 4 mg IVPB Q6H PRN PRN Reason: NAUSEA Polyethylene Glycol (Miralax (For Daily Use) -) 17 gm PO DAILY [facility] Last Admin: 11/03/16 11:33 Dose: Not Given Ramipril (Altace -) 5 mg PO HS [facility] Last Admin: 11/03/16 21:16 Dose: 5 mg Tramadol HCl (Ultram -) 100 mg PO Q6H PRN PRN Reason: PAIN - Objective Vital Signs: Vital Signs Temperature 98.6 F 11/03/16 22:34 Pulse Rate 103 H 11/03/16 22:34 Respiratory Rate 19 11/03/16 22:34 Blood Pressure 137/59 11/03/16 22:34 O2 Sat by Pulse Oximetry (%) 96 11/03/16 22:34 Constitutional: Yes: Mild Distress (emotionally upset about pain and need for narcotics), Obese Cardiovascular: Yes: Regular Rate and Rhythm. No: Gallop, Murmur, Rub Respiratory: Yes: Regular, CTA Bilaterally. No: Rales, Rhonchi, Wheezes Gastrointestinal: Yes: Normal Bowel Sounds, Soft. No: Distention, Tenderness Extremities: Yes: WNL Edema: No Labs: CBC, BMP 11/04/16 07:00 11/04/16 07:00 Problem List - Problems (1) Pathologic compression fracture of lumbar vertebra Code(s): M48.56XA - COLLAPSED VERTEBRA, NEC, LUMBAR REGION, INIT (2) Intractable back pain Code(s): M54.9 - DORSALGIA, UNSPECIFIED (3) Pulmonary hypertension Code(s): I27.2 - OTHER SECONDARY PULMONARY HYPERTENSION (4) Breast cancer Code(s): C50.919 - MALIGNANT NEOPLASM OF UNSP SITE OF UNSPECIFIED FEMALE BREAST (5) Diabetes Code(s): E11.9 - TYPE 2 DIABETES MELLITUS WITHOUT COMPLICATIONS Assessment/Plan (1) Pathologic compression fracture of lumbar vertebra Assessment/Plan: -appreciate Dr Montelongo assistance -cannot do MRI secondary to remodulin pump -order bone scan to evaluate Code(s): M48.56XA - COLLAPSED VERTEBRA, NEC, LUMBAR REGION, INIT (2) Intractable back pain Assessment/Plan: -secondary to fall and compression fractures -PT consulted and following -continue tramadol and medical marijuana -pain management seeing and to decide if opioids is appropriate -patient is visibly upset considering narcotics, asking for Dr Kay's approval before trying Code(s): M54.9 - DORSALGIA, UNSPECIFIED (3) Pulmonary hypertension Assessment/Plan: -continue home regimen -monitor, not a surgical candidate secondary to severity (has pump with remodulin) Code(s): I27.2 - OTHER SECONDARY PULMONARY HYPERTENSION (4) Breast cancer Assessment/Plan: -concerning for metastasis -appreciate oncology assistance -feels not having metastasis, recommending bone scan which is ordered -continue aromasin Code(s): C50.919 - MALIGNANT NEOPLASM OF UNSP SITE OF UNSPECIFIED FEMALE BREAST (5) Diabetes Assessment/Plan: -diabetic diet -continue metformin -continue byetta -monitor glucose on bmp Code(s): E11.9 - TYPE 2 DIABETES MELLITUS WITHOUT COMPLICATIONS
[2016-11-04] MEDS: ARFORMOTEROL TARTRATE 15 MCG/2 ML VIAL NEB SCH ×2 (09:52→21:35)
[2016-11-04] MEDS: FLUTICASONE PROP 0.05% 16 GM NASAL SPRAY NS SCH (10:30)
[2016-11-04] MEDS: LOPERAMIDE HCL 2 MG CAPSULE PO SCH (11:13)
[2016-11-04] MEDS: ASCORBIC ACID 500 MG TABLET (FP) PO SCH (11:13)
[2016-11-04] MEDS: ENOXAPARIN NA (PORCINE) 40 MG/0.4 ML DISP.SYRIN SQ SCH (11:13)
[2016-11-04] MEDS: TADALAFIL 40 MG PO SCH (11:51)
[2016-11-04] MEDS: DOCUSATE SODIUM 100 MG CAPSULE (FP) PO SCH (12:07)
[2016-11-04] MEDS: POLYETHYLENE GLYCOL 3350 119 GM BTL PO SCH (12:11)
[2016-11-04] MEDS: traMADol HCL 50 MG TABLET PO PRN ×2 (16:19→21:35)
[2016-11-04] MEDS: RAMIPRIL 5 MG CAPSULE (FP) PO SCH (21:33)
[2016-11-04] MEDS: CHOLECALCIFEROL (VITAMIN D3) 1,000 UNIT TABLET (FP) PO SCH (21:33)
[2016-11-04] MEDS: MONTELUKAST NA 10 MG TABLET PO SCH (21:33)
[2016-11-04] MEDS: EXEMESTANE 25 MG TABLET PO SCH (21:34)
[2016-11-04] MEDS: TREPROSTINIL SODIUM IJ SCH (21:35)
[2016-11-05] MEDS: DOCUSATE SODIUM 100 MG CAPSULE (FP) PO SCH ×3 (06:39→21:47)
[2016-11-05] MEDS ORDERED: PT OWN MED DRAWER 7, Y5N ONE ×5 (08:24→21:11)
[2016-11-05] MEDS: metFORMIN HCL 500 MG TABLET (FP) PO SCH ×2 (08:25→17:12)
[2016-11-05] MEDS: [UNRECOGNIZED DRUG - OTHER] PO SCH ×2 (08:28→14:14)
[2016-11-05] MEDS: FLUTICASONE PROP 0.05% 16 GM NASAL SPRAY NS SCH (09:16)
[2016-11-05] MEDS: ENOXAPARIN NA (PORCINE) 40 MG/0.4 ML DISP.SYRIN SQ SCH (09:17)
[2016-11-05] MEDS: LOPERAMIDE HCL 2 MG CAPSULE PO SCH (09:17)
[2016-11-05] MEDS: POLYETHYLENE GLYCOL 3350 119 GM BTL PO SCH (09:18)
[2016-11-05] MEDS: ASCORBIC ACID 500 MG TABLET (FP) PO SCH (09:19)
[2016-11-05] MEDS: traMADol HCL 50 MG TABLET PO PRN (09:24)
--- NOTE | 2016-11-05 09:55 | PN ---
Progress Note, Physician Chief Complaint: Ms Blandon continues to have pain in her back, willing to try dilaudid. No cp, sob, n/v. - Current Medication List Current Medications: Active Medications Acetaminophen (Tylenol -) 650 mg PO Q4H PRN PRN Reason: FEVER OR PAIN Arformoterol Tartrate (Brovana (Restricted To Pulmonology/Resp) -) 1 amp NEB BID [facility] Last Admin: 11/04/16 21:35 Dose: 1 amp Ascorbic Acid (Vitamin C -) 500 mg PO DAILY [facility] Last Admin: 11/05/16 09:19 Dose: 500 mg Cholecalciferol (Vitamin D3 -) 2,000 unit PO HS [facility] Last Admin: 11/04/16 21:33 Dose: 2,000 unit Docusate Sodium (Colace -) 100 mg PO BID [facility] Last Admin: 11/05/16 09:16 Dose: 100 mg Enoxaparin Sodium (Lovenox -) 40 mg SQ DAILY [facility] Last Admin: 11/05/16 09:17 Dose: 40 mg Exemestane (Aromasin -) 25 mg PO HS [facility] Last Admin: 11/04/16 21:34 Dose: 25 mg Fluticasone Propionate (Flonase -) 1 spray NS DAILY [facility] Last Admin: 11/05/16 09:16 Dose: 2 inh Furosemide (Lasix -) 20 mg PO DAILY PRN PRN Reason: LEG EDEMA Hydromorphone HCl (Dilaudid -) 2 mg PO Q4HWA PRN PRN Reason: PAIN Loperamide HCl (Imodium -) 2 mg PO DAILY [facility] Last Admin: 11/05/16 09:17 Dose: 2 mg Metformin HCl (Glucophage -) 500 mg PO BIDAC [facility] Last Admin: 11/05/16 08:25 Dose: 500 mg Montelukast Sodium (Singulair -) 10 mg PO HS [facility] Last Admin: 11/04/16 21:33 Dose: 10 mg Non-Formulary Medication (Exenatide) 5 mcg SQ DAILY [facility] Non-Formulary Medication (Treprostinil Sodium [Remodulin]) 2.6 ml IJ ASDIR [facility] Last Admin: 11/04/16 21:35 Dose: 2.6 ml Non-Formulary Medication (Tadalafil [Adcirca]) 40 mg PO DAILY [facility] Last Admin: 11/04/16 11:51 Dose: 40 mg Non-Formulary Med ( (Balance Tincture)) 0 each PO TID [facility] Last Admin: 11/05/16 08:28 Dose: Not Given Non-Formulary Med ( (Forte Tincture)) 0 each PO Q4H PRN Non-Formulary Med ( (Forte Tincture)) 0 each PO Q6H PRN Ondansetron HCl (Zofran Injection) 4 mg IVPB Q6H PRN PRN Reason: NAUSEA Polyethylene Glycol (Miralax (For Daily Use) -) 17 gm PO DAILY [facility] Last Admin: 11/05/16 09:18 Dose: 17 gm Ramipril (Altace -) 5 mg PO HS [facility] Last Admin: 11/04/16 21:33 Dose: 5 mg Tramadol HCl (Ultram -) 100 mg PO Q6H PRN PRN Reason: PAIN Last Admin: 11/05/16 09:24 Dose: 100 mg - Objective Vital Signs: Vital Signs Temperature 98.6 F 11/04/16 22:00 Pulse Rate 94 H 11/04/16 22:00 Respiratory Rate 18 11/05/16 07:52 Blood Pressure 120/60 11/04/16 22:00 O2 Sat by Pulse Oximetry (%) 96 11/03/16 22:34 Constitutional: Yes: No Distress, Calm, Obese Cardiovascular: Yes: Regular Rate and Rhythm. No: Gallop, Murmur, Rub Respiratory: Yes: Regular, CTA Bilaterally. No: Rales, Rhonchi, Wheezes Gastrointestinal: Yes: Normal Bowel Sounds, Soft. No: Distention, Tenderness Extremities: Yes: WNL Edema: No Labs: CBC, BMP 11/04/16 07:00 11/04/16 07:00 Problem List - Problems (1) Pathologic compression fracture of lumbar vertebra Code(s): M48.56XA - COLLAPSED VERTEBRA, NEC, LUMBAR REGION, INIT (2) Intractable back pain Code(s): M54.9 - DORSALGIA, UNSPECIFIED (3) Pulmonary hypertension Code(s): I27.2 - OTHER SECONDARY PULMONARY HYPERTENSION (4) Breast cancer Code(s): C50.919 - MALIGNANT NEOPLASM OF UNSP SITE OF UNSPECIFIED FEMALE BREAST (5) Diabetes Code(s): E11.9 - TYPE 2 DIABETES MELLITUS WITHOUT COMPLICATIONS Assessment/Plan (1) Pathologic compression fracture of lumbar vertebra Assessment/Plan: -appreciate Dr Montelongo assistance -cannot do MRI secondary to remodulin pump -bone scan performed, awaiting read -trial of dilaudid Code(s): M48.56XA - COLLAPSED VERTEBRA, NEC, LUMBAR REGION, INIT (2) Intractable back pain Assessment/Plan: -secondary to fall and compression fractures -PT consulted and following -continue tramadol and medical marijuana -trial of dilaudid as above Code(s): M54.9 - DORSALGIA, UNSPECIFIED (3) Pulmonary hypertension Assessment/Plan: -continue home regimen -monitor, not a surgical candidate secondary to severity (has pump with remodulin) Code(s): I27.2 - OTHER SECONDARY PULMONARY HYPERTENSION (4) Breast cancer Assessment/Plan: -concerning for metastasis -appreciate oncology assistance -await results of bone scan -continue aromasin Code(s): C50.919 - MALIGNANT NEOPLASM OF UNSP SITE OF UNSPECIFIED FEMALE BREAST (5) Diabetes Assessment/Plan: -diabetic diet -continue metformin -continue byetta -monitor glucose on bmp Code(s): E11.9 - TYPE 2 DIABETES MELLITUS WITHOUT COMPLICATIONS
[2016-11-05] MEDS: ARFORMOTEROL TARTRATE 15 MCG/2 ML VIAL NEB SCH ×2 (09:56→21:46)
[2016-11-05] MEDS: TADALAFIL 40 MG PO SCH (10:03)
[2016-11-05] MEDS: HYDROmorphone HCL 2 MG TABLET PO PRN ×3 (10:15→21:49)
[2016-11-05] MEDS: RAMIPRIL 5 MG CAPSULE (FP) PO SCH (21:45)
[2016-11-05] MEDS: EXEMESTANE 25 MG TABLET PO SCH (21:46)
[2016-11-05] MEDS: MONTELUKAST NA 10 MG TABLET PO SCH (21:47)
[2016-11-05] MEDS: TREPROSTINIL SODIUM IJ SCH (21:48)
[2016-11-05] MEDS: CHOLECALCIFEROL (VITAMIN D3) 1,000 UNIT TABLET (FP) PO SCH (21:48)
[2016-11-06 00:06] LABS: A/G RATIO 1.2 (0.7-1.7); ALPHA-1-GLOBULIN 0.3 g/dL (0.0-0.4); BETA GLOBULIN 0.9 g/dL (0.7-1.3); CA 27.29 28 U/mL (0.0-38.6); GAMMA GLOBULIN 0.6 g/dL (0.4-1.8); GLOBULIN, TOTAL 2.7 g/dL (2.2-3.9); M-SPIKE Not Observed g/dL (Not Observed); TOTAL PROTEIN 5.7 g/dL (6.0-8.5)
[2016-11-06] MEDS: [UNRECOGNIZED DRUG - OTHER] PO SCH ×4 (00:44→21:38)
[2016-11-06] MEDS: metFORMIN HCL 500 MG TABLET (FP) PO SCH ×2 (07:02→16:54)
[2016-11-06 08:14] LABS: EOSINOPHIL 2.8 % (0-4.5); MCH 26.5 pg (25.7-33.7); MCHC 33.2 g/dl (32.0-36.0); MEAN PLT VOLUME 6.5 fl (7.5-11.1); NEUTROPHILS 75.1 % (42.8-82.8); PLATELET COUNT 220 K/MM3 (134-434); RDW 15.1 % (11.6-15.6); WHITE BLOOD COUNT 9.2 K/mm3 (4.0-10.0)
[2016-11-06 08:23] LABS: CALCIUM 8.7 mg/dl (8.4-10.2); CREATININE 0.6 mg/dl (0.6-1.3); MAGNESIUM 1.7 mg/dL (1.8-2.4)
[2016-11-06] MEDS: ARFORMOTEROL TARTRATE 15 MCG/2 ML VIAL NEB SCH ×2 (09:49→22:15)
[2016-11-06] MEDS: ENOXAPARIN NA (PORCINE) 40 MG/0.4 ML DISP.SYRIN SQ SCH (09:49)
--- NOTE | 2016-11-06 09:49 | PN ---
Progress Note (short form) - Note Progress Note: Bone scan results reviewed. I will stop by and see the patient later today to discuss the results
[2016-11-06] MEDS: ASCORBIC ACID 500 MG TABLET (FP) PO SCH (09:50)
[2016-11-06] MEDS: LOPERAMIDE HCL 2 MG CAPSULE PO SCH (09:50)
[2016-11-06] MEDS: FLUTICASONE PROP 0.05% 16 GM NASAL SPRAY NS SCH (09:50)
[2016-11-06] MEDS: DOCUSATE SODIUM 100 MG CAPSULE (FP) PO SCH ×2 (09:50→21:37)
[2016-11-06] MEDS: HYDROmorphone HCL 2 MG TABLET PO PRN ×4 (09:50→22:27)
[2016-11-06] MEDS: POLYETHYLENE GLYCOL 3350 119 GM BTL PO SCH (09:51)
[2016-11-06] MEDS: TADALAFIL 40 MG PO SCH (10:00)
--- NOTE | 2016-11-06 16:16 | PN ---
Progress Note (short form) - Note Progress Note: Patient seen and examined. C/O Moderated to severe back pain but better since yesterday after starting dilaudid. Denies chest pain, shortness of breath, palpitation or dizziness. - Active Medications Generic Name Dose Route Start Last Admin Trade Name Freq PRN Reason Stop Dose Admin Acetaminophen 650 mg 11/01/16 21:56 Tylenol - PO Q4H PRN FEVER OR PAIN Arformoterol Tartrate 1 amp 11/01/16 22:00 11/06/16 09:49 Brovana (Restricted To Pulmonology/Resp) - NEB 1 amp BID [facility] Administration Ascorbic Acid 500 mg 11/02/16 10:00 11/06/16 09:50 Vitamin C - PO 500 mg DAILY [facility] Administration Cholecalciferol 2,000 unit 11/01/16 22:00 11/05/16 21:48 Vitamin D3 - PO 2,000 unit HS [facility]ARY Administration Docusate Sodium 100 mg 11/01/16 22:00 11/06/16 09:50 Colace - PO Not Given BID [facility] Enoxaparin Sodium 40 mg 11/02/16 10:00 11/06/16 09:49 Lovenox - SQ 40 mg DAILY [facility] Administration Exemestane 25 mg 11/01/16 22:00 11/05/16 21:46 Aromasin - PO 25 mg HS [facility] Administration Fluticasone Propionate 1 spray 11/02/16 10:00 11/06/16 09:50 Flonase - NS 1 inh DAILY [facility] Administration Furosemide 20 mg 11/01/16 21:55 Lasix - PO DAILY PRN LEG EDEMA Hydromorphone HCl 2 mg 11/05/16 09:53 11/06/16 13:45 Dilaudid - PO 2 mg Q4HWA PRN Administration PAIN Loperamide HCl 2 mg 11/02/16 11:00 11/06/16 09:50 Imodium - PO 2 mg DAILY [facility] Administration Metformin HCl 500 mg 11/02/16 07:00 11/06/16 07:02 Glucophage - PO 500 mg BIDAC [facility] Administration Montelukast Sodium 10 mg 11/01/16 22:00 11/05/16 21:47 Singulair - PO 10 mg HS [facility] Administration Non-Formulary Medication 5 mcg 11/02/16 10:00 Exenatide SQ DAILY [facility] Non-Formulary Medication 2.6 ml 11/01/16 22:00 11/05/16 21:48 Treprostinil Sodium [Remodulin] IJ 2.6 ml ASDIR [facility] Administration Non-Formulary Medication 40 mg 11/03/16 10:00 11/06/16 10:00 Tadalafil [Adcirca] PO 40 mg DAILY [facility] Administration Non-Formulary Med ( 0 each 11/03/16 14:00 11/06/16 13:33 Balance Tincture) PO Not Given TID [facility] Non-Formulary Med ( 0 each 11/03/16 10:25 Forte Tincture) PO Q4H PRN Non-Formulary Med ( 0 each 11/03/16 10:26 Forte Tincture) PO Q6H PRN Ondansetron HCl 4 mg 11/01/16 21:56 Zofran Injection IVPB Q6H PRN NAUSEA Polyethylene Glycol 17 gm 11/02/16 10:00 11/06/16 09:51 Miralax (For Daily Use) - PO Not Given DAILY [facility] Ramipril 5 mg 11/01/16 22:00 11/05/16 21:45 Altace - PO 5 mg HS [facility] Administration - Objective Vital Signs: Vital Signs Period Temp Pulse Resp BP Sys/Sandy Pulse Ox Last 24 Hr 98.1 F 97 18-19 122/50 94 Constitutional: Yes: No Distress, Calm, Obese Cardiovascular: Yes: Regular Rate and Rhythm. No: Gallop, Murmur, Rub Respiratory: Yes: Regular, CTA Bilaterally. No: Rales, Rhonchi, Wheezes Gastrointestinal: Yes: Normal Bowel Sounds, Soft. No: Distention, Tenderness Extremities: Yes: WNL Edema: No Labs: CBC, BMP 11/06/16 07:15 11/06/16 07:15 Problem List - Problems (1) Pathologic compression fracture of lumbar vertebra Code(s): M48.56XA - COLLAPSED VERTEBRA, NEC, LUMBAR REGION, INIT (2) Intractable back pain Code(s): M54.9 - DORSALGIA, UNSPECIFIED (3) Pulmonary hypertension Code(s): I27.2 - OTHER SECONDARY PULMONARY HYPERTENSION (4) Breast cancer Code(s): C50.919 - MALIGNANT NEOPLASM OF UNSP SITE OF UNSPECIFIED FEMALE BREAST (5) Diabetes Code(s): E11.9 - TYPE 2 DIABETES MELLITUS WITHOUT COMPLICATIONS Assessment/Plan (1) Pathologic compression fracture of lumbar vertebra Assessment/Plan: -appreciate Dr Montelongo assistance -cannot do MRI secondary to remodulin pump -bone scan performed. Results reviewed -Continue dilaudid Code(s): M48.56XA - COLLAPSED VERTEBRA, NEC, LUMBAR REGION, INIT (2) Intractable back pain Assessment/Plan: -secondary to fall and compression fractures -PT consulted and following -Continue dilaudid. Code(s): M54.9 - DORSALGIA, UNSPECIFIED (3) Pulmonary hypertension Assessment/Plan: -continue home regimen -monitor, not a surgical candidate secondary to severity (has pump with remodulin) Code(s): I27.2 - OTHER SECONDARY PULMONARY HYPERTENSION (4) Breast cancer Assessment/Plan: -concerning for metastasis -appreciate oncology assistance -continue aromasin Code(s): C50.919 - MALIGNANT NEOPLASM OF UNSP SITE OF UNSPECIFIED FEMALE BREAST (5) Diabetes Assessment/Plan: -diabetic diet -continue metformin -continue byetta -monitor glucose on bmp Code(s): E11.9 - TYPE 2 DIABETES MELLITUS WITHOUT COMPLICATIONS
[2016-11-06] MEDS: MAGNESIUM OXIDE 400 MG TABLET (FP) PO ONE ×2 (16:55→17:21)
[2016-11-06] MEDS ORDERED: PT OWN MED DRAWER 7, Y5N ONE ×2 (21:31→22:09)
[2016-11-06] MEDS: EXEMESTANE 25 MG TABLET PO SCH (21:37)
[2016-11-06] MEDS: CHOLECALCIFEROL (VITAMIN D3) 1,000 UNIT TABLET (FP) PO SCH (21:37)
[2016-11-06] MEDS: RAMIPRIL 5 MG CAPSULE (FP) PO SCH (21:37)
[2016-11-06] MEDS: MONTELUKAST NA 10 MG TABLET PO SCH (21:37)
[2016-11-06] MEDS: TREPROSTINIL SODIUM IJ SCH (21:38)
[2016-11-06] MEDS ORDERED: REFRIGERATED ANITBIOTICS ONE (22:10)
[2016-11-07] MEDS: [UNRECOGNIZED DRUG - OTHER] PO SCH ×3 (07:15→14:42)
[2016-11-07] MEDS: metFORMIN HCL 500 MG TABLET (FP) PO SCH ×2 (07:15→17:01)
[2016-11-07] MEDS ORDERED: PT OWN MED DRAWER 7, Y5N ONE ×2 (09:31→22:04)
[2016-11-07] MEDS: ARFORMOTEROL TARTRATE 15 MCG/2 ML VIAL NEB SCH (09:43)
[2016-11-07] MEDS: ASCORBIC ACID 500 MG TABLET (FP) PO SCH (09:44)
[2016-11-07] MEDS: LOPERAMIDE HCL 2 MG CAPSULE PO SCH (09:45)
[2016-11-07] MEDS: DOCUSATE SODIUM 100 MG CAPSULE (FP) PO SCH ×2 (09:47→22:03)
[2016-11-07] MEDS: ENOXAPARIN NA (PORCINE) 40 MG/0.4 ML DISP.SYRIN SQ SCH (09:47)
[2016-11-07] MEDS: FLUTICASONE PROP 0.05% 16 GM NASAL SPRAY NS SCH (09:47)
[2016-11-07] MEDS: TADALAFIL 40 MG PO SCH (09:48)
[2016-11-07] MEDS: POLYETHYLENE GLYCOL 3350 119 GM BTL PO SCH (09:48)
[2016-11-07] MEDS: HYDROmorphone HCL 2 MG TABLET PO PRN ×3 (09:48→21:58)
[2016-11-07 10:54] LABS: ALBUMIN 3.2 g/dl (3.4-5.0); ALK PHOS 64 U/L (45-117); ANION GAP 9 (8-16); BILIRUBIN,TOTAL 0.4 mg/dL (0.2-1.0); CALCIUM 8.5 mg/dL (8.5-10.1); CO2 27 mmol/L (21-32); CREATININE 0.6 mg/dL (0.55-1.02); GLUCOSE,RANDOM 106 mg/dL (74-106); MAGNESIUM 1.9 mg/dL (1.8-2.4); SGOT/AST 7 U/L (15-37); SGPT/ALT 14 U/L (12-78); TOT PROT 5.9 g/dl (6.4-8.2)
--- NOTE | 2016-11-07 11:14 | PN ---
Progress Note, Physician Chief Complaint: back pain History of Present Illness: 71 year old woman with a history of severe back pain. bone scan shows several compression fractures as well as left rib fractures. Patient continues to have no ability to stand or walk due to severe pain. Pain score 10/10 without medications. She denies numbness in her legs. - Current Medication List Current Medications: Active Medications Acetaminophen (Tylenol -) 650 mg PO Q4H PRN PRN Reason: FEVER OR PAIN Arformoterol Tartrate (Brovana (Restricted To Pulmonology/Resp) -) 1 amp NEB BID [facility] Last Admin: 11/07/16 09:43 Dose: 1 amp Ascorbic Acid (Vitamin C -) 500 mg PO DAILY [facility] Last Admin: 11/07/16 09:44 Dose: 500 mg Cholecalciferol (Vitamin D3 -) 2,000 unit PO [facility] Last Admin: 11/06/16 21:37 Dose: 2,000 unit Docusate Sodium (Colace -) 100 mg PO BID [facility] Last Admin: 11/07/16 09:47 Dose: Not Given Enoxaparin Sodium (Lovenox -) 40 mg SQ DAILY [facility] Last Admin: 11/07/16 09:47 Dose: 40 mg Exemestane (Aromasin -) 25 mg PO [facility] Last Admin: 11/06/16 21:37 Dose: 25 mg Fluticasone Propionate (Flonase -) 1 spray NS DAILY [facility] Last Admin: 11/07/16 09:47 Dose: 1 inh Furosemide (Lasix -) 20 mg PO DAILY PRN PRN Reason: LEG EDEMA Hydromorphone HCl (Dilaudid -) 2 mg PO Q4HWA PRN PRN Reason: PAIN Last Admin: 11/07/16 09:48 Dose: 2 mg Loperamide HCl (Imodium -) 2 mg PO DAILY [facility] Last Admin: 11/07/16 09:45 Dose: Not Given Metformin HCl (Glucophage -) 500 mg PO BIDAC [facility] Last Admin: 11/07/16 07:15 Dose: 500 mg Montelukast Sodium (Singulair -) 10 mg PO HS [facility] Last Admin: 11/06/16 21:37 Dose: 10 mg Non-Formulary Medication (Exenatide) 5 mcg SQ DAILY [facility] Non-Formulary Medication (Treprostinil Sodium [Remodulin]) 2.6 ml IJ ASDIR [facility] Last Admin: 11/06/16 21:38 Dose: 2.6 ml Non-Formulary Medication (Tadalafil [Adcirca]) 40 mg PO DAILY [facility] Last Admin: 11/07/16 09:48 Dose: 40 mg Non-Formulary Med ( (Balance Tincture)) 0 each PO TID [facility] Last Admin: 11/07/16 07:15 Dose: Not Given Non-Formulary Med ( (Forte Tincture)) 0 each PO Q4H PRN Non-Formulary Med ( (Forte Tincture)) 0 each PO Q6H PRN Ondansetron HCl (Zofran Injection) 4 mg IVPB Q6H PRN PRN Reason: NAUSEA Polyethylene Glycol (Miralax (For Daily Use) -) 17 gm PO DAILY [facility] Last Admin: 11/07/16 09:48 Dose: Not Given Ramipril (Altace -) 5 mg PO HS [facility] Last Admin: 11/06/16 21:37 Dose: 5 mg - Objective Vital Signs: Vital Signs Temperature 98.5 F 11/06/16 22:00 Pulse Rate 88 11/06/16 22:00 Respiratory Rate 20 11/06/16 22:00 Blood Pressure 125/59 11/06/16 22:00 O2 Sat by Pulse Oximetry (%) 92 L 11/06/16 22:17 Labs: CBC, BMP 11/06/16 07:15 11/07/16 06:00 Assessment/Plan Lower back pain secondary to acute compression fractures ( several) 1. Since bone scan shows acute compression fractures, the patient can consider a kyphoplasty. the patient has concerns regarding her hernia and ability to lay on her stomach. I will reach out to Dr Kay tomorrrow to discuss her case and as well as the anesthesiologists here at [facility]. 2. Pharmacological approaches- She reports moderate pain improvement after taking dilaudid. She can continue with this medication. She can also continue her medicinal marijuana which she states is helping.
[2016-11-07] MEDS ORDERED: REFRIGERATED ANITBIOTICS ONE ×2 (15:03→21:58)
--- NOTE | 2016-11-07 15:52 | PN ---
Progress Note (short form) - Note Progress Note: Still in lot of pain. Seen by Pain management, recommending kyphoplasty. Denies chest pain, shortness of breath, palpitation or dizziness. - Active Medications Generic Name Dose Route Start Last Admin Trade Name Freq PRN Reason Stop Dose Admin Acetaminophen 650 mg 11/01/16 21:56 Tylenol - PO Q4H PRN FEVER OR PAIN Arformoterol Tartrate 1 amp 11/01/16 22:00 11/06/16 09:49 Brovana (Restricted To Pulmonology/Resp) - NEB 1 amp BID GARY Administration Ascorbic Acid 500 mg 11/02/16 10:00 11/06/16 09:50 Vitamin C - PO 500 mg DAILY GARY Administration Cholecalciferol 2,000 unit 11/01/16 22:00 11/05/16 21:48 Vitamin D3 - PO 2,000 unit HS GARY Administration Docusate Sodium 100 mg 11/01/16 22:00 11/06/16 09:50 Colace - PO Not Given BID GARY Enoxaparin Sodium 40 mg 11/02/16 10:00 11/06/16 09:49 Lovenox - SQ 40 mg DAILY GARY Administration Exemestane 25 mg 11/01/16 22:00 11/05/16 21:46 Aromasin - PO 25 mg HS GARY Administration Fluticasone Propionate 1 spray 11/02/16 10:00 11/06/16 09:50 Flonase - NS 1 inh DAILY GARY Administration Furosemide 20 mg 11/01/16 21:55 Lasix - PO DAILY PRN LEG EDEMA Hydromorphone HCl 2 mg 11/05/16 09:53 11/06/16 13:45 Dilaudid - PO 2 mg Q4HWA PRN Administration PAIN Loperamide HCl 2 mg 11/02/16 11:00 11/06/16 09:50 Imodium - PO 2 mg DAILY GARY Administration Metformin HCl 500 mg 11/02/16 07:00 11/06/16 07:02 Glucophage - PO 500 mg BIDAC GARY Administration Montelukast Sodium 10 mg 11/01/16 22:00 11/05/16 21:47 Singulair - PO 10 mg HS GARY Administration Non-Formulary Medication 5 mcg 11/02/16 10:00 Exenatide SQ DAILY GARY Non-Formulary Medication 2.6 ml 11/01/16 22:00 02/03/17 21:48 Treprostinil Sodium [Remodulin] IJ 2.6 ml ASDIR GARY Administration Non-Formulary Medication 40 mg 11/03/16 10:00 11/06/16 10:00 Tadalafil [Adcirca] PO 40 mg DAILY GARY Administration Non-Formulary Med ( 0 each 11/03/16 14:00 11/06/16 13:33 Balance Tincture) PO Not Given TID GARY Non-Formulary Med ( 0 each 11/03/16 10:25 Forte Tincture) PO Q4H PRN Non-Formulary Med ( 0 each 11/03/16 10:26 Forte Tincture) PO Q6H PRN Ondansetron HCl 4 mg 11/01/16 21:56 Zofran Injection IVPB Q6H PRN NAUSEA Polyethylene Glycol 17 gm 11/02/16 10:00 11/06/16 09:51 Miralax (For Daily Use) - PO Not Given DAILY GARY Ramipril 5 mg 11/01/16 22:00 11/05/16 21:45 Altace - PO 5 mg HS GARY Administration - Objective Vital Signs: Vital Signs Period Temp Pulse Resp BP Sys/Sandy Pulse Ox Last 24 Hr 98.4 F-98.5 F 88-99 18-20 125-136/48-59 90-92 Constitutional: Yes: No Distress, Calm, Obese Cardiovascular: Yes: Regular Rate and Rhythm. No: Gallop, Murmur, Rub Respiratory: Yes: Regular, CTA Bilaterally. No: Rales, Rhonchi, Wheezes Gastrointestinal: Yes: Normal Bowel Sounds, Soft. No: Distention, Tenderness Extremities: Yes: WNL Edema: No Labs: CBC, BMP 11/06/16 07:15 11/07/16 06:00 Problem List - Problems (1) Pathologic compression fracture of lumbar vertebra Code(s): M48.56XA - COLLAPSED VERTEBRA, NEC, LUMBAR REGION, INIT (2) Intractable back pain Code(s): M54.9 - DORSALGIA, UNSPECIFIED (3) Pulmonary hypertension Code(s): I27.2 - OTHER SECONDARY PULMONARY HYPERTENSION (4) Breast cancer Code(s): C50.919 - MALIGNANT NEOPLASM OF UNSP SITE OF UNSPECIFIED FEMALE BREAST (5) Diabetes Code(s): E11.9 - TYPE 2 DIABETES MELLITUS WITHOUT COMPLICATIONS Assessment/Plan (1) Pathologic compression fracture of lumbar vertebra Assessment/Plan: -appreciate Dr Montelongo assistance. Recommending kyphoplasty after discussion with Dr. Kay. -bone scan performed. Results reviewed -Continue dilaudid - Code(s): M48.56XA - COLLAPSED VERTEBRA, NEC, LUMBAR REGION, INIT (2) Intractable back pain Assessment/Plan: -secondary to fall and compression fractures -PT consulted and following -Continue dilaudid. Code(s): M54.9 - DORSALGIA, UNSPECIFIED (3) Pulmonary hypertension Assessment/Plan: -continue home regimen -monitor, not a surgical candidate secondary to severity (has pump with remodulin) Code(s): I27.2 - OTHER SECONDARY PULMONARY HYPERTENSION (4) Breast cancer Assessment/Plan: -concerning for metastasis -appreciate oncology assistance -continue aromasin Code(s): C50.919 - MALIGNANT NEOPLASM OF UNSP SITE OF UNSPECIFIED FEMALE BREAST (5) Diabetes Assessment/Plan: -diabetic diet -continue metformin -continue byetta -monitor glucose on bmp Code(s): E11.9 - TYPE 2 DIABETES MELLITUS WITHOUT COMPLICATIONS
[2016-11-07] MEDS: CHOLECALCIFEROL (VITAMIN D3) 1,000 UNIT TABLET (FP) PO SCH (22:03)
[2016-11-07] MEDS: EXEMESTANE 25 MG TABLET PO SCH (22:03)
[2016-11-07] MEDS: RAMIPRIL 5 MG CAPSULE (FP) PO SCH (22:03)
[2016-11-07] MEDS: MONTELUKAST NA 10 MG TABLET PO SCH (22:03)
[2016-11-08] MEDS: metFORMIN HCL 500 MG TABLET (FP) PO SCH ×2 (07:34→18:39)
--- NOTE | 2016-11-08 09:38 | PN ---
Progress Note, Physician Chief Complaint: Ms Blandon says the dilaudid helps the pain in her back. Concerned about kyphoplasty. No cp, sob, n/v - Current Medication List Current Medications: Active Medications Acetaminophen (Tylenol -) 650 mg PO Q4H PRN PRN Reason: FEVER OR PAIN Arformoterol Tartrate (Brovana (Restricted To Pulmonology/Resp) -) 1 amp NEB BID [facility] Last Admin: 11/07/16 09:43 Dose: 1 amp Ascorbic Acid (Vitamin C -) 500 mg PO DAILY [facility] Last Admin: 11/07/16 09:44 Dose: 500 mg Cholecalciferol (Vitamin D3 -) 2,000 unit PO [facility] Last Admin: 11/07/16 22:03 Dose: 2,000 unit Docusate Sodium (Colace -) 100 mg PO BID [facility] Last Admin: 11/07/16 22:03 Dose: 100 mg Enoxaparin Sodium (Lovenox -) 40 mg SQ DAILY [facility] Last Admin: 11/07/16 09:47 Dose: 40 mg Exemestane (Aromasin -) 25 mg PO HS [facility] Last Admin: 11/07/16 22:03 Dose: 25 mg Fluticasone Propionate (Flonase -) 1 spray NS DAILY [facility] Last Admin: 11/07/16 09:47 Dose: 1 inh Furosemide (Lasix -) 20 mg PO DAILY PRN PRN Reason: LEG EDEMA Hydromorphone HCl (Dilaudid -) 2 mg PO Q4HWA PRN PRN Reason: PAIN Last Admin: 11/07/16 21:58 Dose: 2 mg Loperamide HCl (Imodium -) 2 mg PO DAILY [facility] Last Admin: 11/07/16 09:45 Dose: Not Given Metformin HCl (Glucophage -) 500 mg PO BIDAC [facility] Last Admin: 11/08/16 07:34 Dose: 500 mg Montelukast Sodium (Singulair -) 10 mg PO HS [facility] Last Admin: 11/07/16 22:03 Dose: 10 mg Non-Formulary Medication (Exenatide) 5 mcg SQ DAILY [facility] Non-Formulary Medication (Treprostinil Sodium [Remodulin]) 2.6 ml IJ ASDIR [facility] Last Admin: 11/06/16 21:38 Dose: 2.6 ml Non-Formulary Medication (Tadalafil [Adcirca]) 40 mg PO DAILY [facility] Last Admin: 11/07/16 09:48 Dose: 40 mg Non-Formulary Med ( (Balance Tincture)) 0 each PO TID [facility] Last Admin: 11/07/16 14:42 Dose: Not Given Non-Formulary Med ( (Forte Tincture)) 0 each PO Q4H PRN Non-Formulary Med ( (Forte Tincture)) 0 each PO Q6H PRN Ondansetron HCl (Zofran Injection) 4 mg IVPB Q6H PRN PRN Reason: NAUSEA Polyethylene Glycol (Miralax (For Daily Use) -) 17 gm PO DAILY [facility] Last Admin: 11/07/16 09:48 Dose: Not Given Ramipril (Altace -) 5 mg PO HS [facility] Last Admin: 11/07/16 22:03 Dose: 5 mg - Objective Vital Signs: Vital Signs Temperature 97.9 F 11/07/16 21:57 Pulse Rate 98 H 11/07/16 21:57 Respiratory Rate 20 11/07/16 21:57 Blood Pressure 128/44 11/07/16 21:57 O2 Sat by Pulse Oximetry (%) 90 L 11/07/16 20:05 Constitutional: Yes: No Distress, Calm, Obese Cardiovascular: Yes: Regular Rate and Rhythm. No: Gallop, Murmur, Rub Respiratory: Yes: Regular, CTA Bilaterally. No: Rales, Rhonchi, Wheezes Gastrointestinal: Yes: Normal Bowel Sounds, Soft. No: Distention, Tenderness Extremities: Yes: WNL Edema: No Labs: CBC, BMP 11/06/16 07:15 11/07/16 06:00 Problem List - Problems (1) Pathologic compression fracture of lumbar vertebra Code(s): M48.56XA - COLLAPSED VERTEBRA, NEC, LUMBAR REGION, INIT (2) Intractable back pain Code(s): M54.9 - DORSALGIA, UNSPECIFIED (3) Pulmonary hypertension Code(s): I27.2 - OTHER SECONDARY PULMONARY HYPERTENSION (4) Breast cancer Code(s): C50.919 - MALIGNANT NEOPLASM OF UNSP SITE OF UNSPECIFIED FEMALE BREAST (5) Diabetes Code(s): E11.9 - TYPE 2 DIABETES MELLITUS WITHOUT COMPLICATIONS Assessment/Plan (1) Pathologic compression fracture of lumbar vertebra Assessment/Plan: -appreciate Dr Debeic assistance -bone scan showing compression fractures -continue dilaudid, helps with pain -? kyphoplasty Code(s): M48.56XA - COLLAPSED VERTEBRA, NEC, LUMBAR REGION, INIT (2) Intractable back pain Assessment/Plan: -secondary to fall and compression fractures -PT consulted and following -continue medical marijuana and dilaudid Code(s): M54.9 - DORSALGIA, UNSPECIFIED (3) Pulmonary hypertension Assessment/Plan: -continue home regimen -monitor, not a surgical candidate secondary to severity (has pump with remodulin) Code(s): I27.2 - OTHER SECONDARY PULMONARY HYPERTENSION (4) Breast cancer Assessment/Plan: -appreciate oncology assistance -continue aromasin Code(s): C50.919 - MALIGNANT NEOPLASM OF UNSP SITE OF UNSPECIFIED FEMALE BREAST (5) Diabetes Assessment/Plan: -diabetic diet -continue metformin -continue byetta -monitor glucose on bmp Code(s): E11.9 - TYPE 2 DIABETES MELLITUS WITHOUT COMPLICATIONS
[2016-11-08] MEDS: [UNRECOGNIZED DRUG - OTHER] PO SCH ×3 (09:39→22:01)
[2016-11-08] MEDS: TREPROSTINIL SODIUM IJ SCH (09:39)
[2016-11-08] MEDS: ARFORMOTEROL TARTRATE 15 MCG/2 ML VIAL NEB SCH ×3 (09:40→22:00)
[2016-11-08] MEDS ORDERED: PT OWN MED DRAWER 7, Y5N ONE ×2 (09:42→21:55)
[2016-11-08] MEDS: HYDROmorphone HCL 2 MG TABLET PO PRN ×4 (09:56→22:02)
[2016-11-08] MEDS: ASCORBIC ACID 500 MG TABLET (FP) PO SCH (09:56)
[2016-11-08] MEDS: ENOXAPARIN NA (PORCINE) 40 MG/0.4 ML DISP.SYRIN SQ SCH (09:56)
[2016-11-08] MEDS: LOPERAMIDE HCL 2 MG CAPSULE PO SCH (09:59)
[2016-11-08] MEDS: DOCUSATE SODIUM 100 MG CAPSULE (FP) PO SCH ×2 (09:59→22:01)
[2016-11-08] MEDS: TADALAFIL 40 MG PO SCH (10:00)
[2016-11-08] MEDS: POLYETHYLENE GLYCOL 3350 119 GM BTL PO SCH (10:00)
[2016-11-08 10:06] LABS: BASOPHIL 1.6 % (0-2.0); EOSINOPHIL 2.5 % (0-4.5); MCH 26.3 pg (25.7-33.7); MCHC 32.4 g/dl (32.0-36.0); MEAN PLT VOLUME 6.9 fl (7.5-11.1); NEUTROPHILS 75.8 % (42.8-82.8); PLATELET COUNT 188 K/MM3 (134-434); RDW 15.4 % (11.6-15.6); WHITE BLOOD COUNT 8.7 K/mm3 (4.0-10.0)
[2016-11-08 10:20] LABS: ALBUMIN 3.4 g/dl (3.5-5.0); ALK PHOS 55 U/L (32-92); ANION GAP 11 (8-16); BILIRUBIN,TOTAL 0.4 mg/dl (0.2-1.0); CALCIUM 8.7 mg/dl (8.4-10.2); CO2 24 mmol/L (22-28); CREATININE 0.6 mg/dl (0.6-1.3); GLUCOSE,RANDOM 104 mg/dl (74-106); SGOT/AST 10 U/L (10-42); SGPT/ALT 12 U/L (10-40); TOT PROT 5.8 g/dl (6.4-8.3)
[2016-11-08] MEDS: FLUTICASONE PROP 0.05% 16 GM NASAL SPRAY NS SCH (11:39)
--- NOTE | 2016-11-08 16:13 | PN ---
Progress Note (short form) - Note Progress Note: reports some pain improvement w dilaudid b. scan shows mult comp fxs and does not clearly identify met maria dz per report. The tumor marker is not elevated. Dr. Sebastian is considering kyphoplasty w bone bx pend overall surg/anesthesia risks. A PET scan could be obtained as outpt to further assess bones cont analgesia per Dr. Sebastian Will need endocrine input re: appropriate tx for osteoporosis, freddy in pt planing to cont on AI (only other choice is tamox, which can have signif adverse effect for her (PE)). would make sure vit D is normal
[2016-11-08] MEDS: MONTELUKAST NA 10 MG TABLET PO SCH (22:00)
[2016-11-08] MEDS: RAMIPRIL 5 MG CAPSULE (FP) PO SCH (22:00)
[2016-11-08] MEDS: CHOLECALCIFEROL (VITAMIN D3) 1,000 UNIT TABLET (FP) PO SCH (22:01)
[2016-11-08] MEDS: EXEMESTANE 25 MG TABLET PO SCH (22:01)
[2016-11-09] MEDS: metFORMIN HCL 500 MG TABLET (FP) PO SCH ×2 (06:40→17:23)
[2016-11-09] MEDS: [UNRECOGNIZED DRUG - OTHER] PO SCH ×3 (06:40→21:53)
[2016-11-09 09:04] LABS: BASOPHIL 1.5 % (0-2.0); EOSINOPHIL 2.8 % (0-4.5); MCH 26.6 pg (25.7-33.7); MCHC 33.1 g/dl (32.0-36.0); MEAN CELL VOLUME 80.6 fl (80-96); MEAN PLT VOLUME 6.7 fl (7.5-11.1); NEUTROPHILS 74.1 % (42.8-82.8); PLATELET COUNT 185 K/MM3 (134-434); RDW 15.2 % (11.6-15.6); WHITE BLOOD COUNT 8.2 K/mm3 (4.0-10.0)
[2016-11-09 09:42] LABS: CALCIUM 8.9 mg/dl (8.4-10.2); CREATININE 0.5 mg/dl (0.6-1.3); MAGNESIUM 1.7 mg/dL (1.8-2.4); PHOSPHOROUS 3.9 mg/dl (2.5-4.6)
[2016-11-09] MEDS: HYDROmorphone HCL 2 MG TABLET PO PRN ×2 (09:52→22:44)
[2016-11-09] MEDS: ASCORBIC ACID 500 MG TABLET (FP) PO SCH (09:53)
[2016-11-09] MEDS: POLYETHYLENE GLYCOL 3350 119 GM BTL PO SCH (09:53)
[2016-11-09] MEDS: LOPERAMIDE HCL 2 MG CAPSULE PO SCH (09:53)
[2016-11-09] MEDS: TADALAFIL 40 MG PO SCH (09:53)
[2016-11-09] MEDS: FLUTICASONE PROP 0.05% 16 GM NASAL SPRAY NS SCH (09:54)
[2016-11-09] MEDS: ENOXAPARIN NA (PORCINE) 40 MG/0.4 ML DISP.SYRIN SQ SCH (09:54)
[2016-11-09] MEDS: DOCUSATE SODIUM 100 MG CAPSULE (FP) PO SCH ×2 (09:54→21:54)
--- NOTE | 2016-11-09 09:55 | PN ---
Progress Note, Physician Chief Complaint: Ms Blandon says the pain is improved but still very significant with dilaudid. Still with trouble standing up. No cp, sob, n/v. Very concerned about possibility of kyphoplasty. - Current Medication List Current Medications: Active Medications Acetaminophen (Tylenol -) 650 mg PO Q4H PRN PRN Reason: FEVER OR PAIN Arformoterol Tartrate (Brovana (Restricted To Pulmonology/Resp) -) 1 amp NEB BID [facility] Last Admin: 11/08/16 22:00 Dose: 1 amp Ascorbic Acid (Vitamin C -) 500 mg PO DAILY [facility] Last Admin: 11/08/16 09:56 Dose: 500 mg Cholecalciferol (Vitamin D3 -) 2,000 unit PO HS [facility] Last Admin: 11/08/16 22:01 Dose: 2,000 unit Docusate Sodium (Colace -) 100 mg PO BID [facility] Last Admin: 11/08/16 22:01 Dose: Not Given Enoxaparin Sodium (Lovenox -) 40 mg SQ DAILY [facility] Last Admin: 11/08/16 09:56 Dose: 40 mg Exemestane (Aromasin -) 25 mg PO HS [facility] Last Admin: 11/08/16 22:01 Dose: 25 mg Fluticasone Propionate (Flonase -) 1 spray NS DAILY [facility] Last Admin: 11/08/16 11:39 Dose: 1 inh Furosemide (Lasix -) 20 mg PO DAILY PRN PRN Reason: LEG EDEMA Hydromorphone HCl (Dilaudid -) 4 mg PO Q4HWA PRN PRN Reason: PAIN Loperamide HCl (Imodium -) 2 mg PO DAILY [facility] Last Admin: 11/08/16 09:59 Dose: Not Given Metformin HCl (Glucophage -) 500 mg PO BIDAC [facility] Last Admin: 11/09/16 06:40 Dose: 500 mg Montelukast Sodium (Singulair -) 10 mg PO HS [facility] Last Admin: 11/08/16 22:00 Dose: 10 mg Non-Formulary Medication (Exenatide) 5 mcg SQ DAILY [facility] Non-Formulary Medication (Treprostinil Sodium [Remodulin]) 2.6 ml IJ ASDIR [facility] Last Admin: 11/08/16 09:39 Dose: Not Given Non-Formulary Medication (Tadalafil [Adcirca]) 40 mg PO DAILY [facility] Last Admin: 11/08/16 10:00 Dose: Not Given Non-Formulary Med ( (Balance Tincture)) 0 each PO TID [facility] Last Admin: 11/09/16 06:40 Dose: Not Given Non-Formulary Med ( (Forte Tincture)) 0 each PO Q4H PRN Non-Formulary Med ( (Forte Tincture)) 0 each PO Q6H PRN Ondansetron HCl (Zofran Injection) 4 mg IVPB Q6H PRN PRN Reason: NAUSEA Polyethylene Glycol (Miralax (For Daily Use) -) 17 gm PO DAILY [facility] Last Admin: 11/08/16 10:00 Dose: Not Given Ramipril (Altace -) 5 mg PO HS [facility] Last Admin: 11/08/16 22:00 Dose: 5 mg - Objective Vital Signs: Vital Signs Temperature 99.0 F 11/08/16 22:49 Pulse Rate 91 H 11/08/16 22:49 Respiratory Rate 19 11/08/16 22:49 Blood Pressure 129/56 11/08/16 22:49 O2 Sat by Pulse Oximetry (%) 90 L 11/08/16 22:49 Constitutional: Yes: No Distress, Calm, Obese Cardiovascular: Yes: Regular Rate and Rhythm. No: Gallop, Murmur, Rub Respiratory: Yes: Regular, CTA Bilaterally. No: Rales, Rhonchi, Wheezes Gastrointestinal: Yes: Normal Bowel Sounds, Soft. No: Distention, Tenderness Extremities: Yes: WNL Edema: No Labs: CBC, BMP 11/09/16 07:21 Problem List - Problems (1) Pathologic compression fracture of lumbar vertebra Code(s): M48.56XA - COLLAPSED VERTEBRA, NEC, LUMBAR REGION, INIT (2) Intractable back pain Code(s): M54.9 - DORSALGIA, UNSPECIFIED (3) Pulmonary hypertension Code(s): I27.2 - OTHER SECONDARY PULMONARY HYPERTENSION (4) Breast cancer Code(s): C50.919 - MALIGNANT NEOPLASM OF UNSP SITE OF UNSPECIFIED FEMALE BREAST (5) Diabetes Code(s): E11.9 - TYPE 2 DIABETES MELLITUS WITHOUT COMPLICATIONS Assessment/Plan (1) Pathologic compression fracture of lumbar vertebra Assessment/Plan: -appreciate Dr Montelongo assistance -will increase dilaudid today to help with pain control -patient very nervous about kyphoplasty -reassured patient, she will contact Dr Montelongo with her decision Code(s): M48.56XA - COLLAPSED VERTEBRA, NEC, LUMBAR REGION, INIT (2) Intractable back pain Assessment/Plan: -secondary to fall and compression fractures -PT consulted and following -continue medical marijuana -increase oral dilaudid Code(s): M54.9 - DORSALGIA, UNSPECIFIED (3) Pulmonary hypertension Assessment/Plan: -continue home regimen -monitor, not a surgical candidate secondary to severity (has pump with remodulin) Code(s): I27.2 - OTHER SECONDARY PULMONARY HYPERTENSION (4) Breast cancer Assessment/Plan: -appreciate oncology assistance -continue aromasin Code(s): C50.919 - MALIGNANT NEOPLASM OF UNSP SITE OF UNSPECIFIED FEMALE BREAST (5) Diabetes Assessment/Plan: -diabetic diet -continue metformin -continue byetta -monitor glucose on bmp Code(s): E11.9 - TYPE 2 DIABETES MELLITUS WITHOUT COMPLICATIONS
[2016-11-09] MEDS: ARFORMOTEROL TARTRATE 15 MCG/2 ML VIAL NEB SCH ×2 (10:25→21:54)
--- NOTE | 2016-11-09 19:11 | PN ---
Progress Note (short form) - Note Progress Note: Patient scheduled for kyphoplasty with biopsy morning at 10am. Please hold all anticoagulation tomorrow after 10am. will stop by tomorrow to discuss with patient
[2016-11-09] MEDS ORDERED: PT OWN MED DRAWER 7, Y5N ONE (21:00)
[2016-11-09] MEDS: MONTELUKAST NA 10 MG TABLET PO SCH (21:53)
[2016-11-09] MEDS: CHOLECALCIFEROL (VITAMIN D3) 1,000 UNIT TABLET (FP) PO SCH (21:53)
[2016-11-09] MEDS: RAMIPRIL 5 MG CAPSULE (FP) PO SCH (21:53)
[2016-11-09] MEDS: EXEMESTANE 25 MG TABLET PO SCH (22:45)
[2016-11-09] MEDS: TREPROSTINIL SODIUM IJ SCH (22:45)
[2016-11-10] MEDS: [UNRECOGNIZED DRUG - OTHER] PO SCH ×3 (06:01→21:38)
[2016-11-10] MEDS: metFORMIN HCL 500 MG TABLET (FP) PO SCH ×2 (08:20→17:19)
[2016-11-10] MEDS: ASCORBIC ACID 500 MG TABLET (FP) PO SCH (09:21)
[2016-11-10] MEDS: LOPERAMIDE HCL 2 MG CAPSULE PO SCH (09:22)
[2016-11-10] MEDS: DOCUSATE SODIUM 100 MG CAPSULE (FP) PO SCH ×2 (09:22→21:37)
[2016-11-10] MEDS: ENOXAPARIN NA (PORCINE) 40 MG/0.4 ML DISP.SYRIN SQ SCH (09:22)
[2016-11-10] MEDS: FLUTICASONE PROP 0.05% 16 GM NASAL SPRAY NS SCH (09:22)
[2016-11-10] MEDS: TADALAFIL 40 MG PO SCH (09:23)
[2016-11-10] MEDS: POLYETHYLENE GLYCOL 3350 119 GM BTL PO SCH (09:23)
--- NOTE | 2016-11-10 09:50 | PN ---
Progress Note, Physician Chief Complaint: Ms Blandon says the pain is improved with increased dilaudid. No cp, sob, n/v. Plan for kyphoplasty tomorrow. - Current Medication List Current Medications: Active Medications Acetaminophen (Tylenol -) 650 mg PO Q4H PRN PRN Reason: FEVER OR PAIN Arformoterol Tartrate (Brovana (Restricted To Pulmonology/Resp) -) 1 amp NEB BID [facility] Last Admin: 11/09/16 21:54 Dose: 1 amp Ascorbic Acid (Vitamin C -) 500 mg PO DAILY [facility] Last Admin: 11/10/16 09:21 Dose: 500 mg Cholecalciferol (Vitamin D3 -) 2,000 unit PO HS [facility] Last Admin: 11/09/16 21:53 Dose: 2,000 unit Docusate Sodium (Colace -) 100 mg PO BID [facility] Last Admin: 11/10/16 09:22 Dose: Not Given Enoxaparin Sodium (Lovenox -) 40 mg SQ DAILY [facility] Last Admin: 11/10/16 09:22 Dose: Not Given Exemestane (Aromasin -) 25 mg PO HS [facility] Last Admin: 11/09/16 22:45 Dose: 25 mg Fluticasone Propionate (Flonase -) 1 spray NS DAILY [facility] Last Admin: 11/10/16 09:22 Dose: 1 inh Furosemide (Lasix -) 20 mg PO DAILY PRN PRN Reason: LEG EDEMA Hydromorphone HCl (Dilaudid -) 4 mg PO Q4HWA PRN PRN Reason: PAIN Last Admin: 11/09/16 14:39 Dose: 4 mg Hydromorphone HCl (Dilaudid -) 2 mg PO HS PRN PRN Reason: PAIN Last Admin: 11/09/16 22:44 Dose: 2 mg Loperamide HCl (Imodium -) 2 mg PO DAILY [facility] Last Admin: 11/10/16 09:22 Dose: Not Given Metformin HCl (Glucophage -) 500 mg PO BIDAC [facility] Last Admin: 11/10/16 08:20 Dose: 500 mg Montelukast Sodium (Singulair -) 10 mg PO HS [facility] Last Admin: 11/09/16 21:53 Dose: 10 mg Non-Formulary Medication (Exenatide) 5 mcg SQ DAILY [facility] Non-Formulary Medication (Treprostinil Sodium [Remodulin]) 2.6 ml IJ ASDIR [facility] Last Admin: 11/09/16 22:45 Dose: 2.6 ml Non-Formulary Medication (Tadalafil [Adcirca]) 40 mg PO DAILY [facility] Last Admin: 11/10/16 09:23 Dose: Not Given Non-Formulary Med ( (Balance Tincture)) 0 each PO TID [facility] Last Admin: 11/10/16 06:01 Dose: Not Given Non-Formulary Med ( (Forte Tincture)) 0 each PO Q4H PRN Non-Formulary Med ( (Forte Tincture)) 0 each PO Q6H PRN Ondansetron HCl (Zofran Injection) 4 mg IVPB Q6H PRN PRN Reason: NAUSEA Polyethylene Glycol (Miralax (For Daily Use) -) 17 gm PO DAILY [facility] Last Admin: 11/10/16 09:23 Dose: Not Given Ramipril (Altace -) 5 mg PO HS [facility] Last Admin: 11/09/16 21:53 Dose: 5 mg - Objective Vital Signs: Vital Signs Temperature 98.1 F 11/09/16 22:50 Pulse Rate 97 H 11/09/16 22:50 Respiratory Rate 19 11/09/16 22:50 Blood Pressure 122/58 11/09/16 22:50 O2 Sat by Pulse Oximetry (%) 93 L 11/09/16 22:50 Constitutional: Yes: No Distress, Calm, Obese Cardiovascular: Yes: Regular Rate and Rhythm. No: Gallop, Murmur, Rub Respiratory: Yes: Regular, CTA Bilaterally. No: Rales, Rhonchi, Wheezes Gastrointestinal: Yes: Normal Bowel Sounds, Soft. No: Distention, Tenderness Extremities: Yes: WNL Edema: No Labs: CBC, BMP 11/09/16 07:21 11/09/16 07:21 Problem List - Problems (1) Pathologic compression fracture of lumbar vertebra Code(s): M48.56XA - COLLAPSED VERTEBRA, NEC, LUMBAR REGION, INIT (2) Intractable back pain Code(s): M54.9 - DORSALGIA, UNSPECIFIED (3) Pulmonary hypertension Code(s): I27.2 - OTHER SECONDARY PULMONARY HYPERTENSION (4) Breast cancer Code(s): C50.919 - MALIGNANT NEOPLASM OF UNSP SITE OF UNSPECIFIED FEMALE BREAST (5) Diabetes Code(s): E11.9 - TYPE 2 DIABETES MELLITUS WITHOUT COMPLICATIONS Assessment/Plan (1) Pathologic compression fracture of lumbar vertebra Assessment/Plan: -appreciate Dr Montelongo assistance -pain control improved with increased dilaudid -plan for kyphoplasty tomorrow Code(s): M48.56XA - COLLAPSED VERTEBRA, NEC, LUMBAR REGION, INIT (2) Intractable back pain Assessment/Plan: -secondary to fall and compression fractures -PT consulted and following -continue medical marijuana -continue oral dilaudid Code(s): M54.9 - DORSALGIA, UNSPECIFIED (3) Pulmonary hypertension Assessment/Plan: -continue home regimen -monitor, not a surgical candidate secondary to severity (has pump with remodulin) Code(s): I27.2 - OTHER SECONDARY PULMONARY HYPERTENSION (4) Breast cancer Assessment/Plan: -appreciate oncology assistance -continue aromasin Code(s): C50.919 - MALIGNANT NEOPLASM OF UNSP SITE OF UNSPECIFIED FEMALE BREAST (5) Diabetes Assessment/Plan: -diabetic diet -continue metformin -continue byetta -monitor glucose on bmp Code(s): E11.9 - TYPE 2 DIABETES MELLITUS WITHOUT COMPLICATIONS
[2016-11-10] MEDS: ARFORMOTEROL TARTRATE 15 MCG/2 ML VIAL NEB SCH ×2 (10:53→21:36)
[2016-11-10] MEDS: HYDROmorphone HCL 2 MG TABLET PO PRN ×3 (11:59→22:24)
--- NOTE | 2016-11-10 14:53 | PN ---
Progress Note (short form) - Note Progress Note: I spoke with anesthesiologist who stated the procedure needed to be cancelled. He also suggested that it cannot be done just under local anesthesia due to her large hernia and our facility does not have the proper table for her to be in prone position.
--- NOTE | 2016-11-10 15:17 | PN ---
Progress Note (short form) - Note Progress Note: 71 year female pre op for a Kyphoplasty. Patient with history of obesity, recurrent ventral hernia, met breast ca possible to bone. Now with acute on chronic back pain which has worsened over last 6 months. Patient is currently wheel chair bound due to the pain. Pt also has severe Pulm HTN. Pt failed a trail of Silfenadil. And is currently on a continously sq NO pump. Patient reports her disease is so bad her pumonologist was hesistant to start her on narcotics. She also has a very large recurrent hernia, which she says would make it very unlikely that she could lie prone. 122/58 19 93% on RA 103 pt appears to be in mild distress just sitting in chair and talking plan Spoke with patient at length about risks of sedation and anesthesia as related to her pul HTN. Do not believe she should be done in community hospital. Recommend that she go to a tertiary care center. Also spoke with Surgeon who like to do under local. However she may have difficulty being prone, and may not tolerate if she becomes tachypenic with pain and increase pul pressures which could cause heart failure. pt agrees and will attempt to go to [facility] or [facility]
[2016-11-10] MEDS ORDERED: PT OWN MED DRAWER 7, Y5N ONE (21:32)
[2016-11-10] MEDS: TREPROSTINIL SODIUM IJ SCH (21:36)
[2016-11-10] MEDS: EXEMESTANE 25 MG TABLET PO SCH (21:36)
[2016-11-10] MEDS: CHOLECALCIFEROL (VITAMIN D3) 1,000 UNIT TABLET (FP) PO SCH (21:36)
[2016-11-10] MEDS: MONTELUKAST NA 10 MG TABLET PO SCH (21:36)
[2016-11-10] MEDS: RAMIPRIL 5 MG CAPSULE (FP) PO SCH (21:37)
[2016-11-11] MEDS: [UNRECOGNIZED DRUG - OTHER] PO SCH ×3 (06:10→21:19)
[2016-11-11 07:55] LABS: BASOPHIL 1.1 % (0-2.0); EOSINOPHIL 2.5 % (0-4.5); MCHC 33.5 g/dl (32.0-36.0); MEAN CELL VOLUME 80.5 fl (80-96); MEAN PLT VOLUME 6.3 fl (7.5-11.1); NEUTROPHILS 78.8 % (42.8-82.8); PLATELET COUNT 201 K/MM3 (134-434); RDW 15.4 % (11.6-15.6); WHITE BLOOD COUNT 8.5 K/mm3 (4.0-10.0)
[2016-11-11 08:23] LABS: INR 1.12 (0.82-1.09); PROTHROMBIN TIME (PATIENT) 12.5 SEC (10.2-13.0)
[2016-11-11 08:33] LABS: CALCIUM 8.9 mg/dl (8.4-10.2); CREATININE 0.6 mg/dl (0.6-1.3)
[2016-11-11] MEDS ORDERED: PT OWN MED DRAWER 7, Y5N ONE ×2 (09:43→21:14)
[2016-11-11] MEDS: metFORMIN HCL 500 MG TABLET (FP) PO SCH ×2 (09:56→17:00)
[2016-11-11] MEDS: LOPERAMIDE HCL 2 MG CAPSULE PO SCH (09:57)
[2016-11-11] MEDS: ARFORMOTEROL TARTRATE 15 MCG/2 ML VIAL NEB SCH ×2 (09:57→21:18)
[2016-11-11] MEDS: DOCUSATE SODIUM 100 MG CAPSULE (FP) PO SCH ×2 (09:57→21:18)
[2016-11-11] MEDS: POLYETHYLENE GLYCOL 3350 119 GM BTL PO SCH (09:57)
[2016-11-11] MEDS: TADALAFIL 40 MG PO SCH (09:59)
[2016-11-11] MEDS: ASCORBIC ACID 500 MG TABLET (FP) PO SCH (09:59)
[2016-11-11] MEDS: FLUTICASONE PROP 0.05% 16 GM NASAL SPRAY NS SCH (10:00)
[2016-11-11] MEDS: HYDROmorphone HCL 2 MG TABLET PO PRN ×3 (10:03→21:22)
--- NOTE | 2016-11-11 12:47 | PN ---
Physical Exam: SUBJECTIVE: Patient seen and examined, she reports severe pain upon movement OBJECTIVE: patient is a 71-year-old female with a past medical history of pulmonary hypertension, large ventral hernia, hypertension, chronic sinusitis, and breast cancer (hormone therapy). she was admitted from the emergency department for intractable back pain Vital Signs Period Temp Pulse Resp BP Sys/Sandy Pulse Ox Last 24 Hr 97.7 F-98.3 F 88-93 18-19 112-125/47-84 94-94 GENERAL: The patient is awake, alert, and fully oriented, in no acute distress. HEAD: Normal with no signs of trauma. EYES: PERRL, extraocular movements intact, sclera anicteric, conjunctiva clear. No ptosis. ENT: Ears normal, nares patent, oropharynx clear without exudates, moist mucous membranes. NECK: Trachea midline, full range of motion, supple. LUNGS: Breath sounds equal, clear to auscultation bilaterally, no wheezes, no crackles, no accessory muscle use. HEART: Regular rate and rhythm, S1, S2 without murmur, rub or gallop. ABDOMEN: Soft, nontender, nondistended, normoactive bowel sounds, no guarding, no rebound, no hepatosplenomegaly, no masses. EXTREMITIES: 2+ pulses, warm, well-perfused, no edema. MS: paraspinal tenderness noted to L3. NEUROLOGICAL: Cranial nerves II through XII grossly intact. Normal speech, gait not observed. PSYCH: Normal mood, normal affect. SKIN: Warm, dry, normal turgor, no rashes or lesions noted Laboratory Results - last 24 hr 11/11/16 11/11/16 11/11/16 07:00 07:00 07:00 WBC 8.5 RBC 4.38 Hgb 11.8 Hct 35.3 MCV 80.5 MCHC 33.5 RDW 15.4 Plt Count 201 MPV 6.3 L Neutrophils % 78.8 Lymphocytes % 13.0 D Monocytes % 4.6 Eosinophils % 2.5 Basophils % 1.1 INR 1.12 Sodium 138 Potassium 4.5 Chloride 103 Carbon Dioxide 26 Anion Gap 9 BUN 10 Creatinine 0.6 Random Glucose 116 H Calcium 8.9 Active Medications Generic Name Dose Route Start Last Admin Trade Name Freq PRN Reason Stop Dose Admin Acetaminophen 650 mg 11/01/16 21:56 Tylenol - PO Q4H PRN FEVER OR PAIN Arformoterol Tartrate 1 amp 11/01/16 22:00 11/11/16 09:57 Brovana (Restricted To Pulmonology/Resp) - NEB 1 amp BID GARY Administration Ascorbic Acid 500 mg 11/02/16 10:00 11/11/16 09:59 Vitamin C - PO 500 mg DAILY GARY Administration Cholecalciferol 2,000 unit 11/01/16 22:00 11/10/16 21:36 Vitamin D3 - PO 2,000 unit HS GARY Administration Docusate Sodium 100 mg 11/01/16 22:00 11/11/16 09:57 Colace - PO Not Given BID GARY Exemestane 25 mg 11/01/16 22:00 11/10/16 21:36 Aromasin - PO 25 mg HS GARY Administration Fluticasone Propionate 1 spray 11/02/16 10:00 11/11/16 10:00 Flonase - NS 1 inh DAILY GARY Administration Furosemide 20 mg 11/01/16 21:55 Lasix - PO DAILY PRN LEG EDEMA Hydromorphone HCl 2 mg 11/09/16 22:24 11/11/16 10:03 Dilaudid - PO 2 mg HS PRN Administration PAIN Hydromorphone HCl 2 mg 11/10/16 11:48 11/10/16 17:23 Dilaudid - PO 2 mg Q4H PRN Administration PAIN Hydromorphone HCl 4 mg 11/10/16 11:49 Dilaudid - PO Q4H PRN PAIN Loperamide HCl 2 mg 11/02/16 11:00 11/11/16 09:57 Imodium - PO Not Given DAILY GARY Metformin HCl 500 mg 11/02/16 07:00 11/11/16 09:56 Glucophage - PO 500 mg BIDAC GARY Administration Montelukast Sodium 10 mg 11/01/16 22:00 11/10/16 21:36 Singulair - PO 10 mg HS GARY Administration Non-Formulary Medication 5 mcg 11/02/16 10:00 Exenatide SQ DAILY GARY Non-Formulary Medication 2.6 ml 11/01/16 22:00 11/10/16 21:36 Treprostinil Sodium [Remodulin] IJ 2.6 ml ASDIR GARY Administration Non-Formulary Medication 40 mg 11/03/16 10:00 11/11/16 09:59 Tadalafil [Adcirca] PO Not Given DAILY GARY Non-Formulary Med ( 0 each 11/03/16 14:00 11/11/16 06:10 Balance Tincture) PO Not Given TID GARY Non-Formulary Med ( 0 each 11/03/16 10:25 Forte Tincture) PO Q4H PRN Non-Formulary Med ( 0 each 11/03/16 10:26 Forte Tincture) PO Q6H PRN Ondansetron HCl 4 mg 11/01/16 21:56 Zofran Injection IVPB Q6H PRN NAUSEA Polyethylene Glycol 17 gm 11/02/16 10:00 11/11/16 09:57 Miralax (For Daily Use) - PO Not Given DAILY GAYR Ramipril 5 mg 11/01/16 22:00 11/10/16 21:37 Altace - PO 5 mg HS GARY Administration IMAGING bone scan (11/04/16): acute compression fracture of L2 and L3 vertebral bodies subacute compression fracture of L1 vertebral body subacute/chronic compression fracture of T12, anterior left 7 - [address] scan of abdomen/pelvis without contrast (11/01/2016) large multi-loculated ventral hernia within the right lower quadrant containing nonobstructed small bowel loops ASSESSMENT/PLAN: 1)MS pathologic compression fractures of lumbar vertebrae -Patient reports inadequate relief with Dilaudid and medical marijuana, will start fentanyl patch, increase vital sign to q4h w/spo2 - Dr Montelongo, (pain management) consulted and followed, pt poor candidate for kyphoplasty due to pulmonary hypertension - physical therapy 2) pulm pulmonary hypertension - continue Remodulin pump (home regimen) - continue bipap at night 3) ortho breast cancer - continue aromasin - oncology, consulted and following 4) endo -NIDDM - continue metformin, byetta f/e/n - diabetic diet - replete lytes prn ppx - physical therapy dispo: requires inpatient care Visit type - Emergency Visit Emergency Visit: Yes ED Registration Date: 11/01/16 Care time: The patient presented to the Emergency Department on the above date and was hospitalized for further evaluation of their emergent condition. - New Patient This patient is new to me today: No - Critical Care Critical Care patient: No - Discharge Referral Referred to [facility] No
[2016-11-11] MEDS ORDERED: FENTANYL PATCH WASTE TD PRN (12:49)
[2016-11-11] MEDS ORDERED: fentaNYL 12mcg/hr PATCH.TD72 TD SCH (13:00)
[2016-11-11] MEDS: CHOLECALCIFEROL (VITAMIN D3) 1,000 UNIT TABLET (FP) PO SCH (21:16)
[2016-11-11] MEDS: MONTELUKAST NA 10 MG TABLET PO SCH (21:16)
[2016-11-11] MEDS: RAMIPRIL 5 MG CAPSULE (FP) PO SCH (21:17)
[2016-11-11] MEDS: EXEMESTANE 25 MG TABLET PO SCH (21:17)
[2016-11-11] MEDS: TREPROSTINIL SODIUM IJ SCH (21:18)
[2016-11-12] MEDS: [UNRECOGNIZED DRUG - OTHER] PO SCH ×2 (06:10→14:36)
[2016-11-12] MEDS: metFORMIN HCL 500 MG TABLET (FP) PO SCH ×2 (07:10→16:34)
[2016-11-12] MEDS: LOPERAMIDE HCL 2 MG CAPSULE PO SCH (09:39)
[2016-11-12] MEDS: FLUTICASONE PROP 0.05% 16 GM NASAL SPRAY NS SCH (09:39)
[2016-11-12] MEDS: POLYETHYLENE GLYCOL 3350 119 GM BTL PO SCH (09:39)
[2016-11-12] MEDS: TADALAFIL 40 MG PO SCH (09:40)
[2016-11-12] MEDS: DOCUSATE SODIUM 100 MG CAPSULE (FP) PO SCH (09:40)
[2016-11-12] MEDS: ASCORBIC ACID 500 MG TABLET (FP) PO SCH (09:40)
[2016-11-12] MEDS: HYDROmorphone HCL 2 MG TABLET PO PRN ×3 (09:44→14:53)
[2016-11-12] MEDS: ARFORMOTEROL TARTRATE 15 MCG/2 ML VIAL NEB SCH (10:13)
[2016-11-12 14:19] VITALS: BP 117/51; PULSE 88; TEMP 98.4
--- NOTE | 2016-11-12 16:20 | DS ---
Physical Examination Vital Signs: Vital Signs Temperature 98.4 F 11/12/16 14:18 Pulse Rate 88 11/12/16 14:18 Respiratory Rate 16 11/12/16 14:18 Blood Pressure 117/51 11/12/16 14:18 O2 Sat by Pulse Oximetry (%) 94 L 11/12/16 14:18 Constitutional: Yes: No Distress, Calm, Obese Cardiovascular: Yes: Regular Rate and Rhythm. No: Gallop, Murmur, Rub Respiratory: Yes: Regular, CTA Bilaterally. No: Rales, Rhonchi, Wheezes Gastrointestinal: Yes: Normal Bowel Sounds, Soft. No: Distention, Tenderness Extremities: Yes: WNL Edema: No Labs: CBC, BMP 11/11/16 07:00 11/11/16 07:00 Discharge Summary Reason For Visit: INTRACTABLE BACK PAIN Current Active Problems Breast cancer (Acute) Diabetes (Acute) Intractable back pain (Acute) Pathologic compression fracture of lumbar vertebra (Acute) Pulmonary hypertension (Acute) Hospital Course: (1) Pathologic compression fracture of lumbar vertebra Code(s): M48.56XA - COLLAPSED VERTEBRA, NEC, LUMBAR REGION, INIT (2) Intractable back pain Code(s): M54.9 - DORSALGIA, UNSPECIFIED (3) Pulmonary hypertension Code(s): I27.2 - OTHER SECONDARY PULMONARY HYPERTENSION (4) Breast cancer Code(s): C50.919 - MALIGNANT NEOPLASM OF UNSP SITE OF UNSPECIFIED FEMALE BREAST (5) Diabetes Code(s): E11.9 - TYPE 2 DIABETES MELLITUS WITHOUT COMPLICATIONS Ms Blandon is a pleasant 71 year old female who came in after having a fall and had intractable back pain. She underwent CT scan of her spine which was concerning for compression fractures vs metastasis. MRI was recommended but unable to perform secondary to her having a remodulin pump. Oncology was consulted, low suspicion for metastasis and recommended bone scan. Bone scan was positive for compressions fractures. Oral dilaudid was recommended, but it took a significant amount of time for patient to take it (took oxycodone at one time and stated she woke up intubated days later so was quite anxious about it) . However she was convinced to start it in a monitored setting and tolerated it without problems. She was also seen by pain management who recommended kyphoplasty. However she was seen by anesthesia who stated that she was too high risk for that procedure here and this should be explored at a tertiary care center. Currently Ms Jamia says she would prefer to not undergo any interventions since she is high risk and wants to continue to try medical management. She will be discharge home on dilaudid and was instructed to follow up with Dr Kay next week. Currently she is safe for discharge home with [facility]. 35 minutes spent in preparation of this discharge Condition: Stable - Instructions Diet, Activity, Other Instructions: resume previous diet. Up slowly, walk with walker. Referrals: Angel Kay MD [Primary Care Provider] - John Christianson MD [Staff Physician] - Disposition: VNS/HOME HEALTH CARE - Home Medications Comprehensive Discharge Medication List: Ambulatory Orders Arformoterol Tartrate [Brovana -] 1 neb NEB BID 11/01/16 Ascorbic Acid [Vitamin C -] 500 mg PO DAILY 11/01/16 Cholecalciferol (Vitamin D3) [Vitamin D3] 2,000 unit PO HS 11/01/16 Exemestane [Aromasin] 25 mg PO HS 11/01/16 Exenatide [Byetta [Non-Formulary] -] 5 mcg SQ DAILY 11/01/16 Fluticasone Prop 0.05% Nasal [Flonase -] 1 spray NS DAILY 11/01/16 Furosemide [Lasix] 20 mg PO DAILY PRN 11/01/16 Loperamide HCl [Imodium -] 2 mg PO DAILY 11/01/16 Metformin HCl [Glucophage] 500 mg PO BID 11/01/16 Montelukast Na [Singulair -] 10 mg PO HS 11/01/16 Non-Formulary 0 mg PO ASDIR PRN 11/01/16 Ramipril [Altace] 5 mg PO HS 11/01/16 Tadalafil [Adcirca] 20 mg PO DAILY 11/01/16 Treprostinil Sodium [Remodulin] 2.6 ml IJ ASDIR 11/01/16 Ubidecarenone/Vit E Acetate [Co Q-10 100 mg Softgel] 1 each PO DAILY 11/01/16 Hydromorphone [Dilaudid -] 2 mg PO Q4H PRN #60 tablet MDD 24mg 11/12/16
[2016-11-12] MEDS ORDERED: PT OWN MED DRAWER 7, Y5N ONE (16:44)
[2016-11-12] MEDS ORDERED: HYDROmorphone HCL 2 MG TABLET PO ONE (16:45)
[2016-11-12] MEDS ORDERED: REFRIGERATED ANITBIOTICS ONE (16:47)
== END 2016-11-12 17:10 | disposition home health service (06) | DRG 543 ==
LOC: FER 14:00 → FM/S 20:19
PROVIDERS: ADMIT Internal Medicine; ATTEND Internal Medicine
DX: M48.56XA Collapsed vertebra, not elsewhere classified, lumbar region, initial encounter for fracture (principal); S32.039A Unspecified fracture of third lumbar vertebra, initial encounter for closed fracture; S22.42XA Multiple fractures of ribs, left side, initial encounter for closed fracture; M48.54XA Collapsed vertebra, not elsewhere classified, thoracic region, initial encounter for fracture; W01.0XXA Fall on same level from slipping, tripping and stumbling without subsequent striking against object, initial encounter; Y93.9 Activity, unspecified; Y92.009 Unspecified place in unspecified non-institutional (private) residence as the place of occurrence of the external cause; I27.2 Other secondary pulmonary hypertension; E11.9 Type 2 diabetes mellitus without complications; C50.912 Malignant neoplasm of unspecified site of left female breast; K46.9 Unspecified abdominal hernia without obstruction or gangrene; Z79.84 Long term (current) use of oral hypoglycemic drugs; M85.88 Other specified disorders of bone density and structure, other site; E66.9 Obesity, unspecified; Z68.37 Body mass index [BMI] 37.0-37.9, adult; Z71.3 Dietary counseling and surveillance; Z99.3 Dependence on wheelchair
CPT/HCPCS: 36415; 71010-TC; 72131-TC; 74176-TC; 78306-TC; 80048; 80053; 81003; 82784; 83735; 84100; 84155; 84165; 85025; 85610; 86300; 86334; 93005; 94640; 97116-GP; 97161-GP; 99283-25; A9503